=== PATIENT | female | born 1935 | race Caucasian/White ===

== ENCOUNTER 2016-12-23 10:47 | Emergency (ER) | payer OTHER ==
[2016-12-23 10:57] VITALS: BMI 25.0
--- NOTE | 2016-12-23 11:09 | DR.GENAD ---
HPI - HPI Comment HPI Comment: PATIENT WOKE UP TODAY DOING FINE, STARTED FELLING LIGHT HEADED AND FEELING SHE IS GOING TO FAINT. SYMTOMS STILL PRESENT IN EF. HISTORY OF HTN, HYPERLIPIDEMIA AND GERD. SHE TAKES THYRIOD MEDICATION. - Complaint/Symptoms Chief Complaint Doctors Comments: DIZZINESS, LIGHT HEADED. Chief Complaint:: PT STATES " I AM NOT IN ANY PAIN AND I AM LIGHT HEADED"... - Nurses notes reviewed Nurses Notes Review: Yes - Source History Provided: Patient - Mode of Arrival Mode of Arrival: Ambulatory - Timing Onset of Chief Complaint: 12/23/16 Came on: Suddenly - Duration Duration: Constant Duration: Hours - Severity Severity: Moderate PMH - PMH Past Medical History: No Past Surgical History: Yes Surgical History: Hysterectomy Past Surgical History Comment: HERNIA, LUMPECTOMY.. - Family History History of Family Medical Conditions: Yes Family Medical History: Cancer Family Medical History Comment: AL.. - Social History Does patient currently use any type of tobacco product: No Have you used tobacco products in the last 12 months: No Type of Tobacco Use: None Does any household member use tobacco: No Alcohol Use: None Do you use any recreational Drugs:: No Lives With: Family Lives Where: Home - infectious screening In the last 2 months have you had wt loss of >10#?: NO Have you had fever, night sweats or hemotysis?: No Have you traveled outside the country in the last 6 months?: No Isolation: Standard ROS - Review of Systems Constitutional: Weakness, Fatigue Eyes: No Symptoms Reported ENTM: No Symptoms Reported Respiratoy: No Symptoms Reported. negative: Productive Cough, Short of Breath, Wheezing, Hemoptysis Cardiovascular: Palpitations. negative: Chest Pain, Edema Gastrointestinal/Abdominal: Nausea Genitourinary: No Symptoms Reported Neurological: Weakness, Dizziness. negative: Headache Musculoskeletal: No Symptoms Reported Integumentary: No Symptoms Reported Hematologic/Lymphatic: No Symptoms Reported Endocrine: No Symptoms Reported All Other Systems: Reviewed and Negative PE - Vital Signs Vitals: Pulse Rate [Right Brachial] 53 Pulse Rate 130 Respiratory Rate 20 Blood Pressure [Right Arm] 133/64 Blood Pressure 121/92 O2 Sat by Pulse Oximetry 100 - General Limitations: No Limitations General Appearance: Alert - Head Head Exam: Normal Inspection - Eyes Eye exam: Normal Appearance - ENT ENT Exam: Normal External Ear Exam External Ear Exam: Normal External Inspection TM/Canal Exam: Bilateral Normal Nose Exam: Normal Nose Exam Mouth Exam: Normal Inspection Throat Exam: Normal Inspection - Neck Neck Exam: Normal Inspection - Chest Chest Inspection: Symmetric Chest Wall Rise - Respiratory Respiratory Exam: Normal Lung Sounds Bilat Respiratory Exam: Bilateral Clear to Auscultation - Cardiovascular Cardiovascular Exam: Irregular Rhythm, Normal Heart Sounds - Abdominal Exam Abdominal Exam: Normal Bowel Sounds, Soft. negative: Tenderness - Extremities Extremities Exam: Normal Inspection - Back Back Exam: Normal Inspection - Neurologic Neurological Exam: Alert, Oriented X3 - Psychiatric Psychiatric Exam: Normal Affect, Normal Mood - Skin Skin Exam: Normal Color MDM - Additional Information Additional Information Obtained From: Family - Differential Diagnosis Differential Diagnosis: NEW ONSET A FIB, DIZZINESS, CVA, TIA, AL Course - Treatment Treatment: SEE ORDERS. AFTER 10MG IV CARDIOZEM BOLUS, HEART RATE DECREASE TO LOW FORTIES. STILL LOW AND SHE SHE IS DIZZY. PATIENT TAKES ATENOLOL FOR HYLERTENTION. - Consultation Consultation Comments: DISCUSS PATIENT WITH DR. HERNÁNDEZ MACHINE CLEANER DOCTOR HERE AT [facility]. HE WILL ADMIT PATIENT. DISCUS PT WITH MACHINE CLEANER DR. HERNÁNDEZ. HE WILL ADMIT PATIENT. WHEN PATIENT CONDITION GOT WORSE, HER CARDIOLOGY PAGE. MACHINE CLEANER SITE INTERPRETER DR. CORONEL WILL ACCEPT PATIENT FOR TRANSFER. HOSPITALIST DR. NANCE ALSO AWARE OF PATIENTS TRANSFER AND ACCEPTED. - Education/Counseling Education/Counseling: Patient, Family, Education Educated On: Treatment, Diagnosis ROR - Labs Reviewed Laboratory Results Reviewed?: Yes Result Diagrams: 12/23/16 11:50 12/23/16 11:50 Laboratory: WBC 6.2 X10^3/uL (3.6-10.0) 12/23/16 11:50 RBC 4.45 X10^6/uL (3.5-5.4) 12/23/16 11:50 Hgb 12.9 g/dL (12.0-16.0) 12/23/16 11:50 Hct 39.5 % (36.0-47.0) 12/23/16 11:50 MCV 88.7 fL (80.0-100.0) 12/23/16 11:50 MCH 29.0 pg (27.0-34.0) 12/23/16 11:50 MCHC 32.6 g/dL (33.0-35.0) L 12/23/16 11:50 RDW 13.7 % (11.6-16.5) 12/23/16 11:50 Plt Count 193 X10^3/uL (150.0-450.0) 12/23/16 11:50 MPV 8.6 fL (7.4-11.0) 12/23/16 11:50 Neut % 62.4 % (42.0-75.0) 12/23/16 11:50 Lymph % 26.4 % (21.0-51.0) 12/23/16 11:50 [place] % 8.6 % (0.0-13.0) 12/23/16 11:50 Eos % 1.8 % (0.9-2.9) 12/23/16 11:50 Baso % 0.8 % (0.2-1.0) 12/23/16 11:50 Neut # 3.9 x10^3/uL (2.2-4.8) 12/23/16 11:50 Lymph # 1.6 X10^3/uL (1.3-2.9) 12/23/16 11:50 [place] # 0.5 x10^3/uL (0.3-0.8) 12/23/16 11:50 Eos # 0.1 x10^3/uL (0.0-0.2) 12/23/16 11:50 Baso # 0.1 X10^3/uL (0.0-0.1) 12/23/16 11:50 Absolute Nucleated RBC 0.0 /100WBC 12/23/16 11:50 INR Target Range - 12/23/16 11:50 INR 1.00 (0.8-1.3) 12/23/16 11:50 PTT 26.4 SECONDS (22.9-36.5) 12/23/16 11:50 PTT Comment - 12/23/16 11:50 Sodium 144 mmol/L (136-145) 12/23/16 11:50 Corrected Sodium TNP 12/23/16 11:50 Potassium 4.5 mmol/L (3.5-5.1) 12/23/16 11:50 Chloride 106 mmol/L (98-107) 12/23/16 11:50 Carbon Dioxide 26.3 mmol/L (21-32) 12/23/16 11:50 BUN 19 mg/dL (7-18) H 12/23/16 11:50 Creatinine 1.61 mg/dL (0.55-1.02) H 12/23/16 11:50 Est GFR (MDRD) Af Amer 39 (>60) L 12/23/16 11:50 Est GFR (MDRD) Non-Af 32 (>60) L 12/23/16 11:50 Glucose 110 mg/dL (65-99) H 12/23/16 11:50 Calcium 9.0 mg/dL (8.5-10.1) 12/23/16 11:50 Corrected Calcium TNP 12/23/16 11:50 Total Bilirubin 0.40 mg/dL (0.2-1.0) 12/23/16 11:50 AST 23 Units/L (15-37) 12/23/16 11:50 ALT 24 Units/L (12-78) 12/23/16 11:50 Alkaline Phosphatase 83 Units/L (46-116) 12/23/16 11:50 Creatine Kinase 126 Units/L (26-192) 12/23/16 11:50 CK-MB (CK-2) 1.2 ng/mL (0-4.0) 12/23/16 11:50 CK/CKMB % Calc 1.0 % (<4) 12/23/16 11:50 Troponin I 0.03 ng/mL (0-1.5) 12/23/16 11:50 Total Protein 7.0 g/dL (6.4-8.2) 12/23/16 11:50 Albumin 3.6 g/dL (3.4-5.0) 12/23/16 11:50 Globulin 3.4 g/dL (2.5-4.5) 12/23/16 11:50 Albumin/Globulin Ratio 1.1 Ratio (1.1-2.1) 12/23/16 11:50 Specimen Type Clean catch urine 12/23/16 11:52 Urine Color Dark yellow (YELLOW) 12/23/16 11:52 Urine Appearance Clear (CLEAR) 12/23/16 11:52 Urine pH 5.0 (5.0 - 8.0) 12/23/16 11:52 Ur Specific [place] 1.020 (1.000-1.030) 12/23/16 11:52 Urine Protein 2+ (NEGATIVE) 12/23/16 11:52 Urine Glucose (UA) Negative (NEGATIVE) 12/23/16 11:52 Urine Ketones 1+ (NEGATIVE) 12/23/16 11:52 Urine Occult Blood 1+ (NEGATIVE) 12/23/16 11:52 Urine Nitrite Negative (NEGATIVE) 12/23/16 11:52 Urine Bilirubin Negative (NEGATIVE) 12/23/16 11:52 Urine Urobilinogen 1+ (NORMAL) 12/23/16 11:52 Ur Leukocyte Esterase 1+ (NEGATIVE) 12/23/16 11:52 Urine RBC Rare /HPF (NEGATIVE) 12/23/16 11:52 Urine WBC 0-3 /HPF (NEGATIVE) 12/23/16 11:52 Ur Squamous Epith Cells Few /HPF (NEGATIVE) 12/23/16 11:52 Urine Bacteria Trace /HPF (NEGATIVE) 12/23/16 11:52 Hyaline Casts Moderate /LPF (NEGATIVE) 12/23/16 11:52 Urine Mucus Few /HPF (NEGATIVE) 12/23/16 11:52 Ur Culture Indicated? No/not indicated 12/23/16 11:52 - XRAY XRAY Interpreted by: Radiologist XRAY Findings: REPORT DISCUSS WITH PATIENT AND HER FAMILY. - Diagnosis Discharge Problem: New onset a-fib, Atrial fibrillation, rapid, Bradycardia - Discharge Plan Disposition: XFER SHT-REPLACED BY [facility] Condition: Stable - Follow ups/Referrals Follow ups/Referrals: AFSHAN TELLES [Primary Care Provider] - 3 days - Instructions
[2016-12-23 12:08] LABS: BASOPHILS # (AUTO) 0.1 X10^3/uL (0.0-0.1); BASOPHILS % (AUTO) 0.8 % (0.2-1.0); EOSINOPHILS # (AUTO) 0.1 x10^3/uL (0.0-0.2); EOSINOPHILS % (AUTO) 1.8 % (0.9-2.9); HEMATOCRIT 39.5 % (36.0-47.0); HEMOGLOBIN 12.9 g/dL (12.0-16.0); LYMPHOCYTES # (AUTO) 1.6 X10^3/uL (1.3-2.9); LYMPHOCYTES % (AUTO) 26.4 % (21.0-51.0); MEAN CORPUSCULAR HGB CONC 32.6 g/dL (33.0-35.0); MEAN CORPUSCULAR VOLUME 88.7 fL (80.0-100.0); MEAN PLATELET VOLUME 8.6 fL (7.4-11.0); MONOCYTES # (AUTO) 0.5 x10^3/uL (0.3-0.8); MONOCYTES % (AUTO) 8.6 % (0.0-13.0); NEUTROPHILS # (AUTO) 3.9 x10^3/uL (2.2-4.8); NEUTROPHILS % (AUTO) 62.4 % (42.0-75.0); PLATELET COUNT 193 X10^3/uL (150.0-450.0); RED BLOOD COUNT 4.45 X10^6/uL (3.5-5.4); RED CELL DISTRIBUTION WIDTH 13.7 % (11.6-16.5); WHITE BLOOD COUNT 6.2 X10^3/uL (3.6-10.0)
--- NOTE | 2016-12-23 12:18 | CT ---
HEAD CT WITHOUT IV CONTRAST CLINICAL INDICATION: Dizziness TECHNIQUE: Axial CT images from skull base to vertex without IV contrast.Dose reduction techniques i ncluding Automated Exposure Control (AEC) and adjustment of mA and kV were utlized. COMPARISON: None FINDINGS: Diffuse patchy and confluent white matter hypoattenuation with associated volume loss. There is no e vidence of acute infarction, intracranial hemorrhage, mass or mass effect, or abnormal extra-axial c ollection. The density of the larger dural venous sinuses is normal. Age-related, ex-vacuo dilatatio n of the ventricles and sulci. The skull base and calvarium are normal. The included paranasal sinus es and mastoid air cells are predominantly clear. IMPRESSION: 1. No acute intracranial abnormality. If there is definite, focal, acute neurologic deficit, MRI wit h diffusion-weighted imaging would be more sensitive for detection of acute stroke. 2. Chronic microangiopathic changes and ex vacuo dilatation of the ventricles and sulci. Reported By:
[2016-12-23 12:21] LABS: BILIRUBIN,URINE NEGATIVE (NEGATIVE); BLOOD/HEMOGLOBIN,URINE 1+ (NEGATIVE); GLUCOSE, URINE NEGATIVE (NEGATIVE); KETONES,URINE 1+ (NEGATIVE); LEUKOCYTE ESTERASE ,URINE 1+ (NEGATIVE); NITRITES,URINE NEGATIVE (NEGATIVE); PROTEIN,URINE 2+ (NEGATIVE); UROBILINOGEN,URINE 1+ (NORMAL)
[2016-12-23 12:30] LABS: APPEARANCE,URINE CLEAR (CLEAR); BACTERIA,URINE TRACE /HPF (NEGATIVE); COLOR,URINE DARK YELLOW (YELLOW); HYALINE CASTS, URINE MODERATE /LPF (NEGATIVE); MUCUS,URINE FEW /HPF (NEGATIVE); RBC,URINE RARE /HPF (NEGATIVE); SQUAMOUS EPITHELIAL CELL,UR FEW /HPF (NEGATIVE)
[2016-12-23 12:35] LABS: BLOOD UREA NITROGEN 19 mg/dL (7-18); CARBON DIOXIDE 26.3 mmol/L (21-32); CHLORIDE 106 mmol/L (98-107); CREATININE 1.61 mg/dL (0.55-1.02); GLUCOSE 110 mg/dL (65-99); SODIUM 144 mmol/L (136-145); TROPONIN I 0.03 ng/mL (0-1.5); eGFR BLACK RACES 39 (>60); eGFR NON BLACK RACES 32 (>60)
[2016-12-23 12:40] LABS: ALANINE AMINOTRANSFERASE 24 Units/L (12-78); ALBUMIN 3.6 g/dL (3.4-5.0); ALKALINE PHOSPHATASE 83 Units/L (46-116); ASPARTATE AMINO TRANSFERASE 23 Units/L (15-37); CREATINE KINASE 126 Units/L (26-192); CREATINE KINASE MB 1.2 ng/mL (0-4.0)
[2016-12-23] MEDS ORDERED: NS 250 ML IV 250 ML IV ONE (13:13)
[2016-12-23] MEDS ORDERED: CARDIZEM INJ 50 MG VIAL ONE (13:13)
[2016-12-23] MEDS ORDERED: NS 100 ML IV 100 ML IV ONE (13:14)
[2016-12-23] MEDS ORDERED: CARDIZEM INJ 125 MG VIAL ONE (13:14)
[2016-12-23] MEDS: CARDIZEM INJ 50 MG VIAL IVP ONE ×2 (13:30→13:43)
[2016-12-23] MEDS ORDERED: CARDIZEM INJ 125 MG VIAL 125 MG in NS 100 ML IV 100 ML IV PRN (13:30)
--- NOTE | 2016-12-23 13:36 | RAD ---
HISTORY: Dizziness Study: Single view of the chest. Comparison: 01/02/2013 Findings: Mild cardiomegaly. No focal consolidations, pleural effusions or pneumothorax. Osseous structures de monstrate no acute abnormality. IMPRESSION: 1. No acute cardiopulmonary process. Reported By:
[2016-12-23] MEDS ORDERED: LOVENOX INJ 40 MG SYR SC ONE (13:46)
[2016-12-23] MEDS ORDERED: LOVENOX INJ 30 MG SYR SC SCH (14:00)
[2016-12-23] MEDS ORDERED: BENTYL CAP 10 MG PO SCH (14:00)
[2016-12-23] MEDS ORDERED: NS 1000 ML 1,000 ML IV SCH (14:00)
[2016-12-23] MEDS ORDERED: NS 1000 ML 1,000 ML ONE (14:48)
[2016-12-23] MEDS ORDERED: NS IV ONE (15:00)
[2016-12-23 16:34] VITALS: BP 133/64
[2016-12-23] MEDS ORDERED: INDOCIN CAP 25 MG PO SCH (21:00)
[2016-12-23] MEDS ORDERED: ZOCOR TAB 40 MG PO SCH (21:00)
[2016-12-24] MEDS ORDERED: ASPIRIN EC 81 MG PO SCH (09:00)
[2016-12-24] MEDS ORDERED: PROTONIX TAB 40 MG PO SCH (09:00)
[2016-12-24] MEDS ORDERED: [UNRECOGNIZED DRUG - OTHER] PO SCH (09:00)
[2016-12-24] MEDS ORDERED: SYNTHROID 100 mcg TAB PO SCH (09:00)
[2016-12-24] MEDS ORDERED: PEPCID TAB 20 MG PO SCH (09:00)
== END 2016-12-23 16:14 | disposition short-term general hospital (02) ==
LOC: ER 10:47
DX: I48.91 Unspecified atrial fibrillation (principal); R00.1 Bradycardia, unspecified
CPT/HCPCS: 36415; 70450; 71010; 80053; 81001; 82550; 82553; 84484; 85025; 85610; 85730; 93005; 93041; 96365; 96367; 96372; 96374; 96375; 99285; A4222; J1650; J3490

== ENCOUNTER → 2017-03-01 | Outpatient (CLI) | payer OTHER ==
--- NOTE | 2017-03-02 09:47 | MG ---
HISTORY: SCREENING Comparison: February 17, 2015 and February 23, 2016 FINDINGS: Bilateral CC and MLO projections of the right and left breast were obtained. Scattered fibroglandul ar tissue is seen to be present without significant interval change. No suspicious architectural di stortion, mass or clustered microcalcifications can be observed to suggest malignancy. No skin thic kening or nipple retraction is appreciated. No pathological lymphadenopathy can be identified. [place]arte ign-appearing calcifications are noted within the right and left breast. IMPRESSION: NO RADIOGRAPHIC EVIDENCE OF MALIGNANCY. ACR CATEGORY 2 - benign findings. FOLLOW-UP EXAM 1 YEAR. Diagnostic CAD was utilized and reviewed. * 0 (ZERO) - ASSESSMENT INCOMPLETE; ADDITIONAL IMAGING IS NEEDED. * 1/1 (ONE) - NEGATIVE. * 2/II (TWO) - BENIGN FINDINGS. * 3/III (THREE) - PROBABLY BENIGN FINDING; SHORT INTERVAL FOLLOW-UP SUGGESTED. * 4/IV (FOUR) - SUSPICIOUS ABNORMALITY; BIOPSY SHOULD BE CONSIDERED. * 5/V (FIVE) - HIGHLY SUSPICIOUS OF MALIGNANCY; BIOPSY SHOULD BE PERFORMED. A NEGATIVE X-RAY REPORT SHOULD NOT DELAY BIOPSY IF A DOMINANT OR CLINICALLY SUSPICIOUS MASS IS PRESENT; 4 TO 8 PERCENT OF CANCERS ARE NOT IDENTIFIED BY X-RAY. A NEG ATIVE REPORT MAY REINFORCE THE CLINICAL IMPRESSION. ADENOSIS AND DENSE BREASTS MAY OBSCURE AN UNDER LYING NEOPLASM. Reported By:
== END ==
LOC: RAD 14:27
PROVIDERS: ATTEND Nurse Practitioner Family
DX: Z12.31 Encounter for screening mammogram for malignant neoplasm of breast (principal)
CPT/HCPCS: 77067

== ENCOUNTER 2018-08-29 11:10 | Inpatient (IN) ==
[2018-08-29] MEDS: CORDARONE TAB 200 MG PO SCH ×2 (13:57→22:21)
[2018-08-29] MEDS: BENTYL CAP 10 MG PO SCH ×2 (13:58→21:01)
[2018-08-29] MEDS: ROXICODONE TAB 5 MG PO PRN ×2 (14:46→20:49)
[2018-08-29] MEDS: SYNTHROID 75 mcg TAB PO SCH (17:20)
[2018-08-29] MEDS: NEURONTIN CAP 100 MG PO SCH (20:49)
[2018-08-29] MEDS: COLACE CAP 100 MG PO SCH (20:49)
[2018-08-29] MEDS: LOPRESSOR TAB 25 MG PO SCH (20:49)
[2018-08-30 05:25] LABS: BASOPHILS % (AUTO) 0.3 % (0.2-1.0); EOSINOPHILS % (AUTO) 0.7 % (0.9-2.9); HEMATOCRIT 22.7 % (36.0-47.0); HEMOGLOBIN 7.8 g/dL (12.0-16.0); LYMPHOCYTES # (AUTO) 0.6 X10^3/uL (1.3-2.9); LYMPHOCYTES % (AUTO) 12.6 % (21.0-51.0); MEAN CORPUSCULAR HEMOGLOBIN 31.2 pg (27.0-34.0); MEAN CORPUSCULAR HGB CONC 34.2 g/dL (33.0-35.0); MEAN CORPUSCULAR VOLUME 91.3 fL (80.0-100.0); MEAN PLATELET VOLUME 8.5 fL (7.4-11.0); MONOCYTES # (AUTO) 0.6 x10^3/uL (0.3-0.8); MONOCYTES % (AUTO) 11.7 % (0.0-13.0); NEUTROPHILS # (AUTO) 3.7 x10^3/uL (2.2-4.8); NEUTROPHILS % (AUTO) 74.7 % (42.0-75.0); PLATELET COUNT 263 X10^3/uL (150.0-450.0); RED BLOOD COUNT 2.49 X10^6/uL (3.5-5.4); RED CELL DISTRIBUTION WIDTH 13.9 % (11.6-16.5)
[2018-08-30 05:39] LABS: ALANINE AMINOTRANSFERASE 27 Units/L (12-78); ALBUMIN 1.7 g/dL (3.4-5.0); ALKALINE PHOSPHATASE 84 Units/L (46-116); ASPARTATE AMINO TRANSFERASE 29 Units/L (15-37); BLOOD UREA NITROGEN 9 mg/dL (7-18); CALCIUM 7.6 mg/dL (8.5-10.1); CARBON DIOXIDE 28.4 mmol/L (21-32); CHLORIDE 102 mmol/L (98-107); COR CA(FOR HYPOALB) 9.4 mg/dL (8.5-10.1); CREATININE 1.04 mg/dL (0.55-1.02); SODIUM 137 mmol/L (136-145); TOTAL PROTEIN 4.8 g/dL (6.4-8.2); eGFR NON BLACK RACES 54 (>60)
[2018-08-30] MEDS: BENTYL CAP 10 MG PO SCH ×3 (05:50→21:20)
[2018-08-30] MEDS: CORDARONE TAB 200 MG PO SCH ×3 (05:50→21:20)
[2018-08-30 06:38] LABS: HYPOCHROMASIA SLIGHT; PLATELET MORPHOLOGY COMMENT NORMAL (NORMAL)
[2018-08-30] MEDS: COLACE CAP 100 MG PO SCH ×2 (09:18→21:20)
[2018-08-30] MEDS: COZAAR PO SCH (09:18)
[2018-08-30] MEDS: NEURONTIN CAP 100 MG PO SCH ×2 (09:19→21:20)
[2018-08-30] MEDS: LOPRESSOR TAB 25 MG PO SCH ×2 (09:19→21:20)
[2018-08-30] MEDS: LIPITOR TAB 40 MG PO SCH (09:19)
[2018-08-30] MEDS: PEPCID TAB 20 MG PO SCH (09:20)
[2018-08-30] MEDS: PROTONIX TAB 40 MG PO SCH (09:20)
[2018-08-30] MEDS: NORVASC TAB 5 MG PO SCH (09:20)
[2018-08-30] MEDS: XARELTO PO SCH (09:20)
[2018-08-30 11:12] LABS: HEMATOCRIT 25.5 % (36.0-47.0); HEMOGLOBIN 8.8 g/dL (12.0-16.0)
[2018-08-30] MEDS: SYNTHROID 75 mcg TAB PO SCH (16:27)
[2018-08-31] MEDS: BENTYL CAP 10 MG PO SCH ×3 (05:16→21:17)
[2018-08-31] MEDS: CORDARONE TAB 200 MG PO SCH ×3 (05:16→21:17)
[2018-08-31] MEDS: COLACE CAP 100 MG PO SCH ×2 (08:47→20:31)
[2018-08-31] MEDS: LIPITOR TAB 40 MG PO SCH (08:47)
[2018-08-31] MEDS: COZAAR PO SCH (08:47)
[2018-08-31] MEDS: NEURONTIN CAP 100 MG PO SCH ×2 (08:48→20:31)
[2018-08-31] MEDS: NORVASC TAB 5 MG PO SCH (08:48)
[2018-08-31] MEDS: LOPRESSOR TAB 25 MG PO SCH ×2 (08:48→20:31)
[2018-08-31] MEDS: PEPCID TAB 20 MG PO SCH (08:48)
[2018-08-31] MEDS: PROTONIX TAB 40 MG PO SCH (08:53)
[2018-08-31] MEDS: XARELTO PO SCH (08:54)
[2018-08-31] MEDS: SYNTHROID 75 mcg TAB PO SCH (17:09)
[2018-08-31] MEDS: ROXICODONE TAB 5 MG PO PRN (17:32)
[2018-09-01] MEDS: BENTYL CAP 10 MG PO SCH ×3 (05:20→21:03)
[2018-09-01] MEDS: CORDARONE TAB 200 MG PO SCH ×3 (05:20→21:08)
[2018-09-01] MEDS: LOPRESSOR TAB 25 MG PO SCH ×2 (08:35→20:33)
[2018-09-01] MEDS: NORVASC TAB 5 MG PO SCH (08:35)
[2018-09-01] MEDS: PROTONIX TAB 40 MG PO SCH (08:35)
[2018-09-01] MEDS: LIPITOR TAB 40 MG PO SCH (08:35)
[2018-09-01] MEDS: COLACE CAP 100 MG PO SCH ×2 (08:36→20:34)
[2018-09-01] MEDS: COZAAR PO SCH (08:36)
[2018-09-01] MEDS: PEPCID TAB 20 MG PO SCH (08:36)
[2018-09-01] MEDS: XARELTO PO SCH (08:36)
[2018-09-01] MEDS: NEURONTIN CAP 100 MG PO SCH ×2 (08:36→20:33)
[2018-09-01] MEDS: ROXICODONE TAB 5 MG PO PRN ×2 (10:01→22:12)
[2018-09-01] MEDS: SYNTHROID 75 mcg TAB PO SCH (17:00)
[2018-09-01] MEDS: BACTRIM DS TAB PO SCH ×2 (17:33→20:34)
[2018-09-02] MEDS: BENTYL CAP 10 MG PO SCH ×3 (05:11→22:01)
[2018-09-02] MEDS: CORDARONE TAB 200 MG PO SCH ×3 (05:11→22:01)
[2018-09-02] MEDS: XARELTO PO SCH (08:43)
[2018-09-02] MEDS: COZAAR PO SCH (08:44)
[2018-09-02] MEDS: NEURONTIN CAP 100 MG PO SCH ×2 (08:44→20:50)
[2018-09-02] MEDS: PROTONIX TAB 40 MG PO SCH (08:44)
[2018-09-02] MEDS: BACTRIM DS TAB PO SCH ×2 (08:44→20:49)
[2018-09-02] MEDS: LOPRESSOR TAB 25 MG PO SCH ×2 (08:44→20:50)
[2018-09-02] MEDS: NORVASC TAB 5 MG PO SCH ×2 (08:44→08:46)
[2018-09-02] MEDS: PEPCID TAB 20 MG PO SCH (08:45)
[2018-09-02] MEDS: COLACE CAP 100 MG PO SCH ×2 (08:45→20:49)
[2018-09-02] MEDS: ROXICODONE TAB 5 MG PO PRN ×2 (08:47→20:54)
[2018-09-02] MEDS: LIPITOR TAB 40 MG PO SCH (08:47)
--- NOTE | 2018-09-02 12:59 | PCM.PROG ---
Progress Note - Progress Note for Day of Date of Exam: 09/02/18 - Subjective Subjective: 83 WF SWING BED STATUS FOLLOWING LEFT HIP FRACTURE REPAIR. PT IS CURRENTLY RECIEVING PHSYICAL THERAPY. PT HAD HAD MINIMAL DRAINAGE TO LEFT HIP DRESSING, STARTED ON PO BACTRIM PER DR MCCONNELL. CONTINUE MILD SOILED DRESSING THIS AM, PT DENIES PAIN OR INCREASED REDNESS TO SURGICAL SITE, WOUND CULTURE ORDERED. CONTINUE PO BACTRIM AND MONITOR - Past Medical Family Social History Past Med/Fam/Surg Hx: No changes since H&P Allergies: Allergies codeine Allergy (Verified 04/04/18 06:20) meperidine [From Demerol] Allergy (Verified 04/04/18 06:20) - Review of Systems ROS: No change since H&P - Vital Signs and I&O's Vital Signs: Temperature 98 F Pulse Rate [Left Brachial] 85 Respiratory Rate 20 Blood Pressure [Left Arm] 168/71 Blood Pressure [Right Arm] 130/64 Blood Pressure 138/64 O2 Sat by Pulse Oximetry 97 Intake and Output: Intake & Output 08/31/18 09/01/18 09/02/18 09/03/18 11:59 11:59 11:59 11:59 Intake Total 960 / 960 1400 / 1400 1100 / 1100 Balance 960 / 960 1400 / 1400 1100 / 1100 - Physical Exam Oriented: Person Eyes: Normal Nose: Normal Throat: Normal Respiratory: Normal Cardiovascular: Normal : Normal Auscultation: Bowel Sounds: Normal Palpation: Normal Tenderness: Normal Skin: Wound Musculoskeletal: Left, Hip Mood Description: Calm Speech Pattern: Clear, Appropriate - Laboratory and Diagnostics Result Diagrams: 08/30/18 10:57 08/30/18 04:20 Labs: Laboratory WBC 5.0 X10^3/uL (3.6-10.0) 08/30/18 04:20 RBC 2.49 X10^6/uL (3.5-5.4) L 08/30/18 04:20 Hgb 8.8 g/dL (12.0-16.0) L 08/30/18 10:57 Hct 25.5 % (36.0-47.0) L 08/30/18 10:57 MCV 91.3 fL (80.0-100.0) 08/30/18 04:20 MCH 31.2 pg (27.0-34.0) 08/30/18 04:20 MCHC 34.2 g/dL (33.0-35.0) 08/30/18 04:20 RDW 13.9 % (11.6-16.5) 08/30/18 04:20 Plt Count 263 X10^3/uL (150.0-450.0) 08/30/18 04:20 Plt Count Comment Adequate (ADEQUATE) 08/30/18 04:20 MPV 8.5 fL (7.4-11.0) 08/30/18 04:20 Neut % (Auto) 74.7 % (42.0-75.0) 08/30/18 04:20 Lymph % (Auto) 12.6 % (21.0-51.0) L 08/30/18 04:20 [place] % (Auto) 11.7 % (0.0-13.0) 08/30/18 04:20 Eos % (Auto) 0.7 % (0.9-2.9) L 08/30/18 04:20 Baso % (Auto) 0.3 % (0.2-1.0) 08/30/18 04:20 Neut # (Auto) 3.7 x10^3/uL (2.2-4.8) 08/30/18 04:20 Lymph # (Auto) 0.6 X10^3/uL (1.3-2.9) L 08/30/18 04:20 [place] # (Auto) 0.6 x10^3/uL (0.3-0.8) 08/30/18 04:20 Eos # (Auto) 0.0 x10^3/uL (0.0-0.2) 08/30/18 04:20 Baso # (Auto) 0.0 X10^3/uL (0.0-0.1) 08/30/18 04:20 Absolute Nucleated RBC 0.0 /100WBC 08/30/18 04:20 Plt Morphology Comment Normal (NORMAL) 08/30/18 04:20 RBC Morphology Abnormal (NORMAL) A 08/30/18 04:20 Hypochromasia Slight A 08/30/18 04:20 Sodium 137 mmol/L (136-145) 08/30/18 04:20 Corrected Sodium TNP 08/30/18 04:20 Potassium 4.3 mmol/L (3.5-5.1) 08/30/18 04:20 Chloride 102 mmol/L (98-107) 08/30/18 04:20 Carbon Dioxide 28.4 mmol/L (21-32) 08/30/18 04:20 BUN 9 mg/dL (7-18) 08/30/18 04:20 Creatinine 1.04 mg/dL (0.55-1.02) H 08/30/18 04:20 Est GFR (MDRD) Af Amer > 60 (>60) 08/30/18 04:20 Est GFR (MDRD) Non-Af 54 (>60) L 08/30/18 04:20 Glucose 108 mg/dL (65-99) H 08/30/18 04:20 Calcium 7.6 mg/dL (8.5-10.1) L 08/30/18 04:20 Corrected Calcium 9.4 mg/dL (8.5-10.1) 08/30/18 04:20 Total Bilirubin 0.90 mg/dL (0.2-1.0) 08/30/18 04:20 AST 29 Units/L (15-37) 08/30/18 04:20 ALT 27 Units/L (12-78) 08/30/18 04:20 Alkaline Phosphatase 84 Units/L (46-116) 08/30/18 04:20 Total Protein 4.8 g/dL (6.4-8.2) L 08/30/18 04:20 Albumin 1.7 g/dL (3.4-5.0) L 08/30/18 04:20 Globulin 3.1 g/dL (2.5-4.5) 08/30/18 04:20 Albumin/Globulin Ratio 0.5 Ratio (1.1-2.1) L 08/30/18 04:20 - Plan (1) Status post-operative repair of type I or II open fracture of left hip Status: Acute Plan: WOUND CARE, PT. ROUTINE LABS (2) Atrial fibrillation with controlled ventricular response Status: Acute
[2018-09-02 14:59] LABS: BASOPHILS % (AUTO) 0.5 % (0.2-1.0); EOSINOPHILS # (AUTO) 0.1 x10^3/uL (0.0-0.2); EOSINOPHILS % (AUTO) 0.6 % (0.9-2.9); HEMATOCRIT 25.5 % (36.0-47.0); HEMOGLOBIN 8.8 g/dL (12.0-16.0); LYMPHOCYTES # (AUTO) 0.7 X10^3/uL (1.3-2.9); LYMPHOCYTES % (AUTO) 8.6 % (21.0-51.0); MEAN CORPUSCULAR HEMOGLOBIN 31.5 pg (27.0-34.0); MEAN CORPUSCULAR HGB CONC 34.6 g/dL (33.0-35.0); MEAN PLATELET VOLUME 7.5 fL (7.4-11.0); MONOCYTES # (AUTO) 0.5 x10^3/uL (0.3-0.8); MONOCYTES % (AUTO) 6.8 % (0.0-13.0); NEUTROPHILS # (AUTO) 6.6 x10^3/uL (2.2-4.8); NEUTROPHILS % (AUTO) 83.5 % (42.0-75.0); PLATELET COUNT 459 X10^3/uL (150.0-450.0); RED BLOOD COUNT 2.81 X10^6/uL (3.5-5.4); RED CELL DISTRIBUTION WIDTH 14.3 % (11.6-16.5)
[2018-09-02 15:19] LABS: ALANINE AMINOTRANSFERASE 24 Units/L (12-78); ALBUMIN 2.1 g/dL (3.4-5.0); ALKALINE PHOSPHATASE 104 Units/L (46-116); ASPARTATE AMINO TRANSFERASE 29 Units/L (15-37); BLOOD UREA NITROGEN 8 mg/dL (7-18); CALCIUM 7.6 mg/dL (8.5-10.1); CARBON DIOXIDE 26.7 mmol/L (21-32); CHLORIDE 100 mmol/L (98-107); COR CA(FOR HYPOALB) 9.1 mg/dL (8.5-10.1); CREATININE 1.03 mg/dL (0.55-1.02); SODIUM 136 mmol/L (136-145); TOTAL PROTEIN 5.3 g/dL (6.4-8.2); eGFR NON BLACK RACES 54 (>60)
[2018-09-02] MEDS: SYNTHROID 75 mcg TAB PO SCH (16:49)
[2018-09-03] MEDS: BENTYL CAP 10 MG PO SCH ×4 (05:11→21:34)
[2018-09-03] MEDS: CORDARONE TAB 200 MG PO SCH ×4 (05:11→21:34)
[2018-09-03] MEDS: COLACE CAP 100 MG PO SCH ×2 (08:44→20:22)
[2018-09-03] MEDS: LOPRESSOR TAB 25 MG PO SCH ×2 (08:44→20:22)
[2018-09-03] MEDS: PEPCID TAB 20 MG PO SCH (08:44)
[2018-09-03] MEDS: PROTONIX TAB 40 MG PO SCH (08:44)
[2018-09-03] MEDS: LIPITOR TAB 40 MG PO SCH (08:44)
[2018-09-03] MEDS: XARELTO PO SCH (08:44)
[2018-09-03] MEDS: COZAAR PO SCH (08:45)
[2018-09-03] MEDS: NEURONTIN CAP 100 MG PO SCH ×2 (08:45→20:22)
[2018-09-03] MEDS: BACTRIM DS TAB PO SCH ×2 (08:45→20:22)
[2018-09-03] MEDS: NORVASC TAB 5 MG PO SCH (09:17)
[2018-09-03] MEDS ORDERED: ZOFRAN TAB 4 MG PO PRN (09:29)
[2018-09-03] MEDS: SYNTHROID 75 mcg TAB PO SCH (15:51)
[2018-09-04] MEDS: CORDARONE TAB 200 MG PO SCH ×3 (05:12→21:23)
[2018-09-04] MEDS: BENTYL CAP 10 MG PO SCH ×3 (05:12→21:23)
[2018-09-04] MEDS: BACTRIM DS TAB PO SCH (09:58)
[2018-09-04] MEDS: PEPCID TAB 20 MG PO SCH (09:59)
[2018-09-04] MEDS: LIPITOR TAB 40 MG PO SCH (09:59)
[2018-09-04] MEDS: NEURONTIN CAP 100 MG PO SCH ×2 (09:59→20:03)
[2018-09-04] MEDS: COLACE CAP 100 MG PO SCH ×2 (09:59→20:02)
[2018-09-04] MEDS: NORVASC TAB 5 MG PO SCH (09:59)
[2018-09-04] MEDS: LOPRESSOR TAB 25 MG PO SCH ×2 (09:59→20:03)
[2018-09-04] MEDS: COZAAR PO SCH (09:59)
[2018-09-04] MEDS: PROTONIX TAB 40 MG PO SCH (10:00)
[2018-09-04] MEDS: XARELTO PO SCH (10:00)
[2018-09-04] MEDS: ROXICODONE TAB 5 MG PO PRN (10:00)
[2018-09-04] MEDS ORDERED: CONSULT PHARMACY - ANTIBIOTIC XX SCH (11:00)
--- NOTE | 2018-09-04 13:08 | PCM.PROG ---
Progress Note - Progress Note for Day of Date of Exam: 09/04/18 - Subjective Subjective: 83 WF SWING BED STATUS FOLLOWING LEFT HIP FRACTURE REPAIR. PT IS CURRENTLY RECIEVING PHSYICAL THERAPY. PT HAD HAD MINIMAL DRAINAGE TO LEFT HIP DRESSING, STARTED ON PO BACTRIM PER DR MCCONNELL. WOUND CULTURE +ENTEROCOCCUS CONTINUE MILD SOILED DRESSING THIS AM, PT DENIES PAIN OR INCREASED REDNESS TO SURGICAL SITE, WOUND CULTURE ORDERED. CONTINUE PO BACTRIM AND MONITOR - Past Medical Family Social History Past Med/Fam/Surg Hx: No changes since H&P Allergies: Allergies codeine Allergy (Verified 04/04/18 06:20) meperidine [From Demerol] Allergy (Verified 04/04/18 06:20) - Review of Systems ROS: No change since H&P - Vital Signs and I&O's Vital Signs: Temperature 97.8 F Pulse Rate [Left Brachial] 80 Respiratory Rate 20 Blood Pressure [Left Arm] 115/54 Blood Pressure [Right Arm] 117/59 Blood Pressure 138/64 O2 Sat by Pulse Oximetry 98 Intake and Output: Intake & Output 09/02/18 09/03/18 09/04/18 09/05/18 11:59 11:59 11:59 11:59 Intake Total 1100 / 1100 1620 / 1620 800 / 800 Balance 1100 / 1100 1620 / 1620 800 / 800 - Physical Exam Oriented: Person Eyes: Normal Ear: Normal Nose: Normal Throat: Normal Respiratory: Normal Cardiovascular: Normal : Normal Auscultation: Bowel Sounds: Normal Tenderness: Normal Skin: Wound Musculoskeletal: Left, Hip Mood Description: Calm Speech Pattern: Clear, Appropriate - Laboratory and Diagnostics Result Diagrams: 09/02/18 14:44 09/02/18 14:44 Labs: 09/02/18 15:05 Hip - Left Gram Stain - Final 09/02/18 15:05 Hip - Left Wound Culture - Final Enterococcus Faecalis Laboratory WBC 8.0 X10^3/uL (3.6-10.0) 09/02/18 14:44 RBC 2.81 X10^6/uL (3.5-5.4) L 09/02/18 14:44 Hgb 8.8 g/dL (12.0-16.0) L 09/02/18 14:44 Hct 25.5 % (36.0-47.0) L 09/02/18 14:44 MCV 91.0 fL (80.0-100.0) 09/02/18 14:44 MCH 31.5 pg (27.0-34.0) 09/02/18 14:44 MCHC 34.6 g/dL (33.0-35.0) 09/02/18 14:44 RDW 14.3 % (11.6-16.5) 09/02/18 14:44 Plt Count 459 X10^3/uL (150.0-450.0) H 09/02/18 14:44 Plt Count Comment Adequate (ADEQUATE) 08/30/18 04:20 MPV 7.5 fL (7.4-11.0) 09/02/18 14:44 Neut % (Auto) 83.5 % (42.0-75.0) H 09/02/18 14:44 Lymph % (Auto) 8.6 % (21.0-51.0) L 09/02/18 14:44 [place] % (Auto) 6.8 % (0.0-13.0) 09/02/18 14:44 Eos % (Auto) 0.6 % (0.9-2.9) L 09/02/18 14:44 Baso % (Auto) 0.5 % (0.2-1.0) 09/02/18 14:44 Neut # (Auto) 6.6 x10^3/uL (2.2-4.8) H 09/02/18 14:44 Lymph # (Auto) 0.7 X10^3/uL (1.3-2.9) L 09/02/18 14:44 [place] # (Auto) 0.5 x10^3/uL (0.3-0.8) 09/02/18 14:44 Eos # (Auto) 0.1 x10^3/uL (0.0-0.2) 09/02/18 14:44 Baso # (Auto) 0.0 X10^3/uL (0.0-0.1) 09/02/18 14:44 Absolute Nucleated RBC 0.0 /100WBC 09/02/18 14:44 Plt Morphology Comment Normal (NORMAL) 08/30/18 04:20 RBC Morphology Abnormal (NORMAL) A 08/30/18 04:20 Hypochromasia Slight A 08/30/18 04:20 Sodium 136 mmol/L (136-145) 09/02/18 14:44 Corrected Sodium TNP 09/02/18 14:44 Potassium 3.8 mmol/L (3.5-5.1) 09/02/18 14:44 Chloride 100 mmol/L (98-107) 09/02/18 14:44 Carbon Dioxide 26.7 mmol/L (21-32) 09/02/18 14:44 BUN 8 mg/dL (7-18) 09/02/18 14:44 Creatinine 1.03 mg/dL (0.55-1.02) H 09/02/18 14:44 Est GFR (MDRD) Af Amer > 60 (>60) 09/02/18 14:44 Est GFR (MDRD) Non-Af 54 (>60) L 09/02/18 14:44 Glucose 107 mg/dL (65-99) H 09/02/18 14:44 Calcium 7.6 mg/dL (8.5-10.1) L 09/02/18 14:44 Corrected Calcium 9.1 mg/dL (8.5-10.1) 09/02/18 14:44 Total Bilirubin 0.90 mg/dL (0.2-1.0) 09/02/18 14:44 AST 29 Units/L (15-37) 09/02/18 14:44 ALT 24 Units/L (12-78) 09/02/18 14:44 Alkaline Phosphatase 104 Units/L (46-116) 09/02/18 14:44 Total Protein 5.3 g/dL (6.4-8.2) L 09/02/18 14:44 Albumin 2.1 g/dL (3.4-5.0) L 09/02/18 14:44 Globulin 3.2 g/dL (2.5-4.5) 09/02/18 14:44 Albumin/Globulin Ratio 0.7 Ratio (1.1-2.1) L 09/02/18 14:44 - Plan (1) Status post-operative repair of type I or II open fracture of left hip Status: Acute Plan: WOUND CARE, PT. D/C BACTRIM, CONSULT PHARMACY FOR IV ATBIOTIC. ROUTINE LABS (2) Atrial fibrillation with controlled ventricular response Status: Acute
[2018-09-04] MEDS: SYNTHROID 75 mcg TAB PO SCH (15:41)
[2018-09-04] MEDS: ZYVOX TAB 600 MG PO SCH (20:03)
[2018-09-05] MEDS: BENTYL CAP 10 MG PO SCH ×3 (05:37→21:00)
[2018-09-05] MEDS: PEPCID TAB 20 MG PO SCH (09:11)
[2018-09-05] MEDS: XARELTO PO SCH (09:11)
[2018-09-05] MEDS: LIPITOR TAB 40 MG PO SCH (09:11)
[2018-09-05] MEDS: COZAAR PO SCH (09:12)
[2018-09-05] MEDS: PROTONIX TAB 40 MG PO SCH (09:12)
[2018-09-05] MEDS: NEURONTIN CAP 100 MG PO SCH ×2 (09:12→20:57)
[2018-09-05] MEDS: ZYVOX TAB 600 MG PO SCH ×2 (09:12→20:56)
[2018-09-05] MEDS: NORVASC TAB 5 MG PO SCH (09:13)
[2018-09-05] MEDS: COLACE CAP 100 MG PO SCH ×2 (09:13→20:56)
[2018-09-05] MEDS: LOPRESSOR TAB 25 MG PO SCH ×2 (09:13→21:08)
[2018-09-05] MEDS: CORDARONE TAB 200 MG PO SCH ×2 (09:13→21:08)
[2018-09-05] MEDS ORDERED: ZYVOX TAB 600 MG ONE (09:53)
[2018-09-05 15:11] LABS: BASOPHILS % (AUTO) 0.6 % (0.2-1.0); EOSINOPHILS % (AUTO) 0.4 % (0.9-2.9); HEMATOCRIT 25.5 % (36.0-47.0); HEMOGLOBIN 8.7 g/dL (12.0-16.0); LYMPHOCYTES # (AUTO) 0.6 X10^3/uL (1.3-2.9); MEAN CORPUSCULAR HEMOGLOBIN 31.5 pg (27.0-34.0); MEAN CORPUSCULAR HGB CONC 34.2 g/dL (33.0-35.0); MEAN CORPUSCULAR VOLUME 92.1 fL (80.0-100.0); MEAN PLATELET VOLUME 7.7 fL (7.4-11.0); MONOCYTES # (AUTO) 0.7 x10^3/uL (0.3-0.8); MONOCYTES % (AUTO) 9.1 % (0.0-13.0); NEUTROPHILS # (AUTO) 6.2 x10^3/uL (2.2-4.8); NEUTROPHILS % (AUTO) 81.9 % (42.0-75.0); PLATELET COUNT 532 X10^3/uL (150.0-450.0); RED BLOOD COUNT 2.77 X10^6/uL (3.5-5.4); RED CELL DISTRIBUTION WIDTH 14.1 % (11.6-16.5); WHITE BLOOD COUNT 7.5 X10^3/uL (3.6-10.0)
[2018-09-05 15:23] LABS: ALBUMIN 2.2 g/dL (3.4-5.0); CALCIUM 7.9 mg/dL (8.5-10.1); CARBON DIOXIDE 25.6 mmol/L (21-32); COR CA(FOR HYPOALB) 9.3 mg/dL (8.5-10.1); CREATININE 1.31 mg/dL (0.55-1.02); TOTAL PROTEIN 5.2 g/dL (6.4-8.2)
[2018-09-05] MEDS: SYNTHROID 75 mcg TAB PO SCH (17:00)
[2018-09-05] MEDS: ROXICODONE TAB 5 MG PO PRN (18:54)
[2018-09-06] MEDS: BENTYL CAP 10 MG PO SCH ×3 (05:56→21:26)
[2018-09-06] MEDS: CORDARONE TAB 200 MG PO SCH ×2 (09:04→21:28)
[2018-09-06] MEDS: COLACE CAP 100 MG PO SCH ×2 (09:04→21:26)
[2018-09-06] MEDS: NORVASC TAB 5 MG PO SCH (09:05)
[2018-09-06] MEDS: NEURONTIN CAP 100 MG PO SCH ×2 (09:05→21:26)
[2018-09-06] MEDS: PEPCID TAB 20 MG PO SCH (09:05)
[2018-09-06] MEDS: LIPITOR TAB 40 MG PO SCH (09:05)
[2018-09-06] MEDS: COZAAR PO SCH (09:05)
[2018-09-06] MEDS: ZYVOX TAB 600 MG PO SCH ×2 (09:05→21:26)
[2018-09-06] MEDS: LOPRESSOR TAB 25 MG PO SCH ×2 (09:05→21:26)
[2018-09-06] MEDS: XARELTO PO SCH (09:06)
[2018-09-06] MEDS: PROTONIX TAB 40 MG PO SCH (09:06)
[2018-09-06] MEDS: TAB-A-VITE PO SCH (10:58)
--- NOTE | 2018-09-06 14:29 | PCM.PROG ---
Progress Note - Progress Note for Day of Date of Exam: 09/06/18 - Subjective Subjective: 83 WF SWING BED STATUS FOLLOWING LEFT HIP FRACTURE REPAIR. PT IS CURRENTLY RECIEVING PHSYICAL THERAPY. PT HAD HAD MINIMAL DRAINAGE TO LEFT HIP DRESSING. WOUND CULTURE +ENTEROCOCCUS. ON PO ZYVOX, CULTURE REPORT FAXED TO DIAZ RODRIGUEZ. PT SEEN HIM FOR FOLLOW UP ON SUNDAY IN HIS OFFICE IN [place]. CONTINUE MILD SOILED DRESSING THIS AM, PT DENIES PAIN OR INCREASED REDNESS TO SURGICAL SITE. NO FEVER - Past Medical Family Social History Past Med/Fam/Surg Hx: No changes since H&P Allergies: Allergies codeine Allergy (Verified 04/04/18 06:20) meperidine [From Demerol] Allergy (Verified 04/04/18 06:20) - Review of Systems ROS: No change since H&P - Vital Signs and I&O's Vital Signs: Temperature 96.9 F Pulse Rate [Left Brachial] 69 Respiratory Rate 18 Blood Pressure [Left Arm] 139/64 Blood Pressure [Right Arm] 117/59 Blood Pressure 138/64 O2 Sat by Pulse Oximetry 97 Intake and Output: Intake & Output 09/04/18 09/05/18 09/06/18 09/07/18 11:59 11:59 11:59 11:59 Intake Total 800 / 800 970 / 970 960 / 960 Balance 800 / 800 970 / 970 960 / 960 - Physical Exam Oriented: Person Eyes: Normal Ear: Normal Nose: Normal Throat: Normal Respiratory: Normal Cardiovascular: Normal : Normal Auscultation: Bowel Sounds: Normal Tenderness: Normal Skin: Wound Musculoskeletal: Left, Hip Mood Description: Calm Speech Pattern: Clear, Appropriate - Laboratory and Diagnostics Result Diagrams: 09/05/18 14:50 09/05/18 14:50 Labs: 09/02/18 15:05 Hip - Left Gram Stain - Final 09/02/18 15:05 Hip - Left Wound Culture - Final Enterococcus Faecalis Laboratory WBC 7.5 X10^3/uL (3.6-10.0) 09/05/18 14:50 RBC 2.77 X10^6/uL (3.5-5.4) L 09/05/18 14:50 Hgb 8.7 g/dL (12.0-16.0) L 09/05/18 14:50 Hct 25.5 % (36.0-47.0) L 09/05/18 14:50 MCV 92.1 fL (80.0-100.0) 09/05/18 14:50 MCH 31.5 pg (27.0-34.0) 09/05/18 14:50 MCHC 34.2 g/dL (33.0-35.0) 09/05/18 14:50 RDW 14.1 % (11.6-16.5) 09/05/18 14:50 Plt Count 532 X10^3/uL (150.0-450.0) H 09/05/18 14:50 Plt Count Comment Adequate (ADEQUATE) 08/30/18 04:20 MPV 7.7 fL (7.4-11.0) 09/05/18 14:50 Neut % (Auto) 81.9 % (42.0-75.0) H 09/05/18 14:50 Lymph % (Auto) 8.0 % (21.0-51.0) L 09/05/18 14:50 [place] % (Auto) 9.1 % (0.0-13.0) 09/05/18 14:50 Eos % (Auto) 0.4 % (0.9-2.9) L 09/05/18 14:50 Baso % (Auto) 0.6 % (0.2-1.0) 09/05/18 14:50 Neut # (Auto) 6.2 x10^3/uL (2.2-4.8) H 09/05/18 14:50 Lymph # (Auto) 0.6 X10^3/uL (1.3-2.9) L 09/05/18 14:50 [place] # (Auto) 0.7 x10^3/uL (0.3-0.8) 09/05/18 14:50 Eos # (Auto) 0.0 x10^3/uL (0.0-0.2) 09/05/18 14:50 Baso # (Auto) 0.0 X10^3/uL (0.0-0.1) 09/05/18 14:50 Absolute Nucleated RBC 0.0 /100WBC 09/05/18 14:50 Plt Morphology Comment Normal (NORMAL) 08/30/18 04:20 RBC Morphology Abnormal (NORMAL) A 08/30/18 04:20 Hypochromasia Slight A 08/30/18 04:20 Sodium 134 mmol/L (136-145) L 09/05/18 14:50 Corrected Sodium 134 mmol/L (136-145) L 09/05/18 14:50 Potassium 4.8 mmol/L (3.5-5.1) 09/05/18 14:50 Chloride 100 mmol/L (98-107) 09/05/18 14:50 Carbon Dioxide 25.6 mmol/L (21-32) 09/05/18 14:50 BUN 11 mg/dL (7-18) 09/05/18 14:50 Creatinine 1.31 mg/dL (0.55-1.02) H 09/05/18 14:50 Est GFR (MDRD) Af Amer 50 (>60) L 09/05/18 14:50 Est GFR (MDRD) Non-Af 41 (>60) L 09/05/18 14:50 Glucose 111 mg/dL (65-99) H 09/05/18 14:50 Calcium 7.9 mg/dL (8.5-10.1) L 09/05/18 14:50 Corrected Calcium 9.3 mg/dL (8.5-10.1) 09/05/18 14:50 Total Bilirubin 0.60 mg/dL (0.2-1.0) 09/05/18 14:50 AST 23 Units/L (15-37) 09/05/18 14:50 ALT 20 Units/L (12-78) 09/05/18 14:50 Alkaline Phosphatase 139 Units/L (46-116) H 09/05/18 14:50 Total Protein 5.2 g/dL (6.4-8.2) L 09/05/18 14:50 Albumin 2.2 g/dL (3.4-5.0) L 09/05/18 14:50 Globulin 3.0 g/dL (2.5-4.5) 09/05/18 14:50 Albumin/Globulin Ratio 0.7 Ratio (1.1-2.1) L 09/05/18 14:50 - Plan (1) Status post-operative repair of type I or II open fracture of left hip Status: Acute Plan: WOUND CARE, PT. D/C BACTRIM, CONSULT PHARMACY FOR IV ATBIOTIC. ROUTINE LABS (2) Atrial fibrillation with controlled ventricular response Status: Acute
[2018-09-06] MEDS: SYNTHROID 75 mcg TAB PO SCH (16:08)
[2018-09-07] MEDS: BENTYL CAP 10 MG PO SCH ×3 (05:15→21:00)
[2018-09-07] MEDS: ZYVOX TAB 600 MG PO SCH ×2 (08:11→21:00)
[2018-09-07] MEDS: NORVASC TAB 5 MG PO SCH (08:11)
[2018-09-07] MEDS: PEPCID TAB 20 MG PO SCH (08:12)
[2018-09-07] MEDS: LIPITOR TAB 40 MG PO SCH (08:12)
[2018-09-07] MEDS: COLACE CAP 100 MG PO SCH ×2 (08:12→21:00)
[2018-09-07] MEDS: NEURONTIN CAP 100 MG PO SCH ×2 (08:12→21:00)
[2018-09-07] MEDS: COZAAR PO SCH (08:12)
[2018-09-07] MEDS: PROTONIX TAB 40 MG PO SCH (08:12)
[2018-09-07] MEDS: TAB-A-VITE PO SCH (08:12)
[2018-09-07] MEDS: LOPRESSOR TAB 25 MG PO SCH ×2 (08:12→21:00)
[2018-09-07] MEDS: XARELTO PO SCH (08:12)
[2018-09-07] MEDS: CORDARONE TAB 200 MG PO SCH ×2 (08:14→21:03)
[2018-09-07] MEDS: SYNTHROID 75 mcg TAB PO SCH (16:20)
[2018-09-07] MEDS ORDERED: BENTYL CAP 10 MG PO ONE (20:47)
[2018-09-08] MEDS: BENTYL CAP 10 MG PO SCH ×3 (05:33→21:35)
[2018-09-08 06:40] LABS: BASOPHILS % (AUTO) 0.9 % (0.2-1.0); EOSINOPHILS % (AUTO) 0.7 % (0.9-2.9); HEMATOCRIT 25.3 % (36.0-47.0); HEMOGLOBIN 8.7 g/dL (12.0-16.0); LYMPHOCYTES # (AUTO) 0.7 X10^3/uL (1.3-2.9); LYMPHOCYTES % (AUTO) 15.4 % (21.0-51.0); MEAN CORPUSCULAR HEMOGLOBIN 31.6 pg (27.0-34.0); MEAN CORPUSCULAR HGB CONC 34.5 g/dL (33.0-35.0); MEAN CORPUSCULAR VOLUME 91.7 fL (80.0-100.0); MEAN PLATELET VOLUME 7.9 fL (7.4-11.0); MONOCYTES # (AUTO) 0.4 x10^3/uL (0.3-0.8); MONOCYTES % (AUTO) 8.1 % (0.0-13.0); NEUTROPHILS # (AUTO) 3.4 x10^3/uL (2.2-4.8); NEUTROPHILS % (AUTO) 74.9 % (42.0-75.0); PLATELET COUNT 506 X10^3/uL (150.0-450.0); RED BLOOD COUNT 2.76 X10^6/uL (3.5-5.4); RED CELL DISTRIBUTION WIDTH 14.7 % (11.6-16.5); WHITE BLOOD COUNT 4.5 X10^3/uL (3.6-10.0)
[2018-09-08 07:25] LABS: ALANINE AMINOTRANSFERASE 21 Units/L (12-78); ALBUMIN 2.2 g/dL (3.4-5.0); ALKALINE PHOSPHATASE 169 Units/L (46-116); ASPARTATE AMINO TRANSFERASE 26 Units/L (15-37); BLOOD UREA NITROGEN 9 mg/dL (7-18); CALCIUM 7.6 mg/dL (8.5-10.1); CARBON DIOXIDE 21.6 mmol/L (21-32); CHLORIDE 102 mmol/L (98-107); CREATININE 1.12 mg/dL (0.55-1.02); SODIUM 138 mmol/L (136-145); TOTAL PROTEIN 5.4 g/dL (6.4-8.2); eGFR NON BLACK RACES 49 (>60)
[2018-09-08] MEDS: TAB-A-VITE PO SCH (08:53)
[2018-09-08] MEDS: COZAAR PO SCH (08:53)
[2018-09-08] MEDS: COLACE CAP 100 MG PO SCH ×2 (08:53→21:35)
[2018-09-08] MEDS: NEURONTIN CAP 100 MG PO SCH ×2 (08:53→21:35)
[2018-09-08] MEDS: LOPRESSOR TAB 25 MG PO SCH ×2 (08:53→21:35)
[2018-09-08] MEDS: PEPCID TAB 20 MG PO SCH (08:53)
[2018-09-08] MEDS: PROTONIX TAB 40 MG PO SCH (08:53)
[2018-09-08] MEDS: CORDARONE TAB 200 MG PO SCH ×2 (08:54→21:35)
[2018-09-08] MEDS: XARELTO PO SCH (08:54)
[2018-09-08] MEDS: NORVASC TAB 5 MG PO SCH (08:54)
[2018-09-08] MEDS: LIPITOR TAB 40 MG PO SCH (08:54)
[2018-09-08] MEDS: ZYVOX TAB 600 MG PO SCH ×2 (09:53→22:08)
[2018-09-08] MEDS: SYNTHROID 75 mcg TAB PO SCH (16:37)
[2018-09-09] MEDS: BENTYL CAP 10 MG PO SCH ×3 (05:36→21:02)
--- NOTE | 2018-09-09 09:08 | PCM.PROG ---
Progress Note - Progress Note for Day of Date of Exam: 09/08/18 - Subjective Subjective: 83 WF SWING BED STATUS FOLLOWING LEFT HIP FRACTURE REPAIR. PT IS CURRENTLY RECIEVING PHSYICAL THERAPY. PT HAD HAD MINIMAL DRAINAGE TO LEFT HIP DRESSING. WOUND CULTURE +ENTEROCOCCUS. ON PO ZYVOX, CULTURE REPORT FAXED TO DIAZ RODRIGUEZ. PT SEEN HIM FOR FOLLOW UP ON SUNDAY IN HIS OFFICE IN [place]. CONTINUE MILD SOILED DRESSING THIS AM, PT DENIES PAIN OR INCREASED REDNESS TO SURGICAL SITE. NO FEVER. PT REPORTS PAIN IS CURRENTLY CONTOLLED, DENIES ANY CP PALPITATIONS OR SOB - Past Medical Family Social History Past Med/Fam/Surg Hx: No changes since H&P Allergies: Allergies codeine Allergy (Verified 04/04/18 06:20) meperidine [From Demerol] Allergy (Verified 04/04/18 06:20) - Review of Systems ROS: No change since H&P - Vital Signs and I&O's Vital Signs: Temperature 98.4 F Pulse Rate [Left Brachial] 80 Respiratory Rate 20 Blood Pressure [Left Arm] 129/60 Blood Pressure [Right Arm] 117/59 Blood Pressure 138/64 O2 Sat by Pulse Oximetry 97 Intake and Output: Intake & Output 09/06/18 09/07/18 09/08/18 09/09/18 11:59 11:59 11:59 11:59 Intake Total 960 / 960 1090 / 1090 940 / 940 1420 / 1420 Balance 960 / 960 1090 / 1090 940 / 940 1420 / 1420 - Physical Exam Oriented: Person Eyes: Normal Ear: Normal Nose: Normal Throat: Normal Respiratory: Normal Cardiovascular: Normal : Normal Auscultation: Bowel Sounds: Normal Tenderness: Normal Skin: Wound Musculoskeletal: Left, Hip Mood Description: Calm Speech Pattern: Clear, Appropriate - Laboratory and Diagnostics Result Diagrams: 09/08/18 05:26 09/08/18 05:26 Labs: 09/02/18 15:05 Hip - Left Gram Stain - Final 09/02/18 15:05 Hip - Left Wound Culture - Final Enterococcus Faecalis Laboratory WBC 4.5 X10^3/uL (3.6-10.0) 09/08/18 05:26 RBC 2.76 X10^6/uL (3.5-5.4) L 09/08/18 05:26 Hgb 8.7 g/dL (12.0-16.0) L 09/08/18 05:26 Hct 25.3 % (36.0-47.0) L 09/08/18 05:26 MCV 91.7 fL (80.0-100.0) 09/08/18 05:26 MCH 31.6 pg (27.0-34.0) 09/08/18 05:26 MCHC 34.5 g/dL (33.0-35.0) 09/08/18 05:26 RDW 14.7 % (11.6-16.5) 09/08/18 05:26 Plt Count 506 X10^3/uL (150.0-450.0) H 09/08/18 05:26 Plt Count Comment Adequate (ADEQUATE) 08/30/18 04:20 MPV 7.9 fL (7.4-11.0) 09/08/18 05:26 Neut % (Auto) 74.9 % (42.0-75.0) 09/08/18 05:26 Lymph % (Auto) 15.4 % (21.0-51.0) L 09/08/18 05:26 [place] % (Auto) 8.1 % (0.0-13.0) 09/08/18 05:26 Eos % (Auto) 0.7 % (0.9-2.9) L 09/08/18 05:26 Baso % (Auto) 0.9 % (0.2-1.0) 09/08/18 05:26 Neut # (Auto) 3.4 x10^3/uL (2.2-4.8) 09/08/18 05:26 Lymph # (Auto) 0.7 X10^3/uL (1.3-2.9) L 09/08/18 05:26 [place] # (Auto) 0.4 x10^3/uL (0.3-0.8) 09/08/18 05:26 Eos # (Auto) 0.0 x10^3/uL (0.0-0.2) 09/08/18 05:26 Baso # (Auto) 0.0 X10^3/uL (0.0-0.1) 09/08/18 05:26 Absolute Nucleated RBC 0.0 /100WBC 09/08/18 05:26 Plt Morphology Comment Normal (NORMAL) 08/30/18 04:20 RBC Morphology Abnormal (NORMAL) A 08/30/18 04:20 Hypochromasia Slight A 08/30/18 04:20 Sodium 138 mmol/L (136-145) 09/08/18 05:26 Corrected Sodium TNP 09/08/18 05:26 Potassium 4.4 mmol/L (3.5-5.1) 09/08/18 05:26 Chloride 102 mmol/L (98-107) 09/08/18 05:26 Carbon Dioxide 21.6 mmol/L (21-32) 09/08/18 05:26 BUN 9 mg/dL (7-18) 09/08/18 05:26 Creatinine 1.12 mg/dL (0.55-1.02) H 09/08/18 05:26 Est GFR (MDRD) Af Amer 59 (>60) 09/08/18 05:26 Est GFR (MDRD) Non-Af 49 (>60) L 09/08/18 05:26 Glucose 92 mg/dL (65-99) 09/08/18 05:26 Calcium 7.6 mg/dL (8.5-10.1) L 09/08/18 05:26 Corrected Calcium 9.0 mg/dL (8.5-10.1) 09/08/18 05:26 Iron 28 ug/dL (50-175) L 09/06/18 14:39 Transferrin 118 mg/dL (202-364) L 09/06/18 14:39 Ferritin 524 ng/mL (8-252) H 09/06/18 14:39 Total Bilirubin 0.60 mg/dL (0.2-1.0) 09/08/18 05:26 AST 26 Units/L (15-37) 09/08/18 05:26 ALT 21 Units/L (12-78) 09/08/18 05:26 Alkaline Phosphatase 169 Units/L (46-116) H 09/08/18 05:26 Total Protein 5.4 g/dL (6.4-8.2) L 09/08/18 05:26 Albumin 2.2 g/dL (3.4-5.0) L 09/08/18 05:26 Globulin 3.2 g/dL (2.5-4.5) 09/08/18 05:26 Albumin/Globulin Ratio 0.7 Ratio (1.1-2.1) L 09/08/18 05:26 Vitamin B12 295 pg/mL (193-986) 09/06/18 14:39 Folate 13.5 ng/mL (>8.6) 09/06/18 14:39 - Plan (1) Status post-operative repair of type I or II open fracture of left hip Status: Acute Plan: WOUND CARE, PT. D/C BACTRIM, CONSULT PHARMACY FOR IV ATBIOTIC. ROUTINE LABS (2) Atrial fibrillation with controlled ventricular response Status: Acute
[2018-09-09] MEDS: ZYVOX TAB 600 MG PO SCH ×2 (09:20→21:03)
[2018-09-09] MEDS: LIPITOR TAB 40 MG PO SCH (09:20)
[2018-09-09] MEDS: TAB-A-VITE PO SCH (09:20)
[2018-09-09] MEDS: COLACE CAP 100 MG PO SCH ×2 (09:20→21:02)
[2018-09-09] MEDS: COZAAR PO SCH (09:20)
[2018-09-09] MEDS: NORVASC TAB 5 MG PO SCH (09:20)
[2018-09-09] MEDS: XARELTO PO SCH (09:20)
[2018-09-09] MEDS: LOPRESSOR TAB 25 MG PO SCH ×2 (09:21→21:02)
[2018-09-09] MEDS: NEURONTIN CAP 100 MG PO SCH ×2 (09:21→21:02)
[2018-09-09] MEDS: CORDARONE TAB 200 MG PO SCH ×2 (09:21→21:03)
[2018-09-09] MEDS: PEPCID TAB 20 MG PO SCH (09:21)
[2018-09-09] MEDS: PROTONIX TAB 40 MG PO SCH (09:21)
[2018-09-09] MEDS: SYNTHROID 75 mcg TAB PO SCH (15:31)
[2018-09-10] MEDS: BENTYL CAP 10 MG PO SCH ×3 (05:28→21:00)
[2018-09-10] MEDS: NEURONTIN CAP 100 MG PO SCH ×2 (08:25→20:50)
[2018-09-10] MEDS: COZAAR PO SCH (08:25)
[2018-09-10] MEDS: LIPITOR TAB 40 MG PO SCH (08:25)
[2018-09-10] MEDS: PROTONIX TAB 40 MG PO SCH (08:25)
[2018-09-10] MEDS: XARELTO PO SCH (08:25)
[2018-09-10] MEDS: NORVASC TAB 5 MG PO SCH (08:25)
[2018-09-10] MEDS: TAB-A-VITE PO SCH (08:25)
[2018-09-10] MEDS: COLACE CAP 100 MG PO SCH ×3 (08:25→20:51)
[2018-09-10] MEDS: LOPRESSOR TAB 25 MG PO SCH ×2 (08:25→20:51)
[2018-09-10] MEDS: PEPCID TAB 20 MG PO SCH (08:26)
[2018-09-10] MEDS: CORDARONE TAB 200 MG PO SCH ×2 (08:26→20:50)
[2018-09-10] MEDS: ZYVOX TAB 600 MG PO SCH (08:26)
[2018-09-10] MEDS: SYNTHROID 75 mcg TAB PO SCH (16:46)
[2018-09-11] MEDS: BENTYL CAP 10 MG PO SCH ×3 (05:21→21:14)
[2018-09-11] MEDS: COLACE CAP 100 MG PO SCH ×2 (08:59→21:14)
[2018-09-11] MEDS: TAB-A-VITE PO SCH (08:59)
[2018-09-11] MEDS: CORDARONE TAB 200 MG PO SCH ×3 (09:00→21:15)
[2018-09-11] MEDS: COZAAR PO SCH (09:00)
[2018-09-11] MEDS: PEPCID TAB 20 MG PO SCH (09:00)
[2018-09-11] MEDS: XARELTO PO SCH (09:00)
[2018-09-11] MEDS: LOPRESSOR TAB 25 MG PO SCH ×2 (09:00→21:14)
[2018-09-11] MEDS: NEURONTIN CAP 100 MG PO SCH ×2 (09:00→21:14)
[2018-09-11] MEDS: NORVASC TAB 5 MG PO SCH (09:00)
[2018-09-11] MEDS: LIPITOR TAB 40 MG PO SCH (09:00)
[2018-09-11] MEDS: PROTONIX TAB 40 MG PO SCH (09:00)
[2018-09-11] MEDS: ROXICODONE TAB 5 MG PO PRN (13:59)
[2018-09-11] MEDS: SYNTHROID 75 mcg TAB PO SCH (17:17)
[2018-09-11] MEDS: MEGACE PO SCH (21:14)
[2018-09-12] MEDS: BENTYL CAP 10 MG PO SCH (05:09)
[2018-09-12] MEDS: TAB-A-VITE PO SCH (09:00)
[2018-09-12] MEDS ORDERED: CORDARONE TAB 200 MG PO SCH ×2 (09:00)
[2018-09-12] MEDS: MEGACE PO SCH (09:00)
[2018-09-12] MEDS: PROTONIX TAB 40 MG PO SCH (09:00)
[2018-09-12] MEDS: COZAAR PO SCH (09:01)
[2018-09-12] MEDS: LOPRESSOR TAB 25 MG PO SCH (09:01)
[2018-09-12] MEDS: PEPCID TAB 20 MG PO SCH (09:01)
[2018-09-12] MEDS: NEURONTIN CAP 100 MG PO SCH (09:01)
[2018-09-12] MEDS: NORVASC TAB 5 MG PO SCH (09:01)
[2018-09-12] MEDS: XARELTO PO SCH (09:01)
[2018-09-12] MEDS: LIPITOR TAB 40 MG PO SCH (09:01)
[2018-09-12] MEDS: COLACE CAP 100 MG PO SCH (09:01)
[2018-09-12 09:39] VITALS: BP 154/70
--- NOTE | 2018-09-12 13:18 | RAD ---
Chest PA and lateral Indication: Cough, and congestion with acute onset Comparison: 04/04/2018 radiograph Findings: There is no pneumothorax. There is cardiomegaly and pleural thickening bilaterally with small effusions. Question left upper lobe lung nodule. Impression: Cardiomegaly and COPD change with effusions. Possible left upper lobe lung nodule. Mid thoracic and upper lumbar spine vertebral body wedging appears chronic. Follow-up is recommended to exclude pulmonary neoplasia. Nonemergent outpatient CT chest can be performed. Reported By:
--- NOTE | 2018-10-04 11:48 | PCM.DCPLAN ---
Discharge Summary - Admission Date Date of Admission: 08/29/18 - Discharge Date Discharge Date: 09/12/18 - Admission Diagnoses (1) Atrial fibrillation with controlled ventricular response Status: Acute (2) Status post-operative repair of type I or II open fracture of left hip Status: Acute (3) Weakness Status: Acute - Discharge Diagnoses Discharge Diagnosis: SAME ADMISSION DIAGNOSIS - Discharge Medications Discharge Medications: Home Medication List amiodarone 200 mg PO QDAY 08/29/18 [History] docusate sodium 100 mg PO BID 08/29/18 [History] losartan 50 mg PO QDAY 08/29/18 [History] metoprolol tartrate 25 mg PO BID 08/29/18 [History] oxycodone 5 mg PO Q6H PRN 08/29/18 [History] rivaroxaban 20 mg PO QDAY 08/29/18 [History] Prescriptions: - Hospital Course Vital Signs: Temperature 98.9 F Pulse Rate [Left Brachial] 70 Respiratory Rate 20 Blood Pressure [Left Arm] 154/70 Blood Pressure [Right Arm] 126/62 Blood Pressure 138/64 O2 Sat by Pulse Oximetry 97 Latest Lab Results: Laboratory Last Values WBC 4.5 X10^3/uL (3.6-10.0) 09/08/18 05:26 RBC 2.76 X10^6/uL (3.5-5.4) L 09/08/18 05:26 Hgb 8.7 g/dL (12.0-16.0) L 09/08/18 05:26 Hct 25.3 % (36.0-47.0) L 09/08/18 05:26 MCV 91.7 fL (80.0-100.0) 09/08/18 05:26 MCH 31.6 pg (27.0-34.0) 09/08/18 05:26 MCHC 34.5 g/dL (33.0-35.0) 09/08/18 05:26 RDW 14.7 % (11.6-16.5) 09/08/18 05:26 Plt Count 506 X10^3/uL (150.0-450.0) H 09/08/18 05:26 Plt Count Comment Adequate (ADEQUATE) 08/30/18 04:20 MPV 7.9 fL (7.4-11.0) 09/08/18 05:26 Neut % (Auto) 74.9 % (42.0-75.0) 09/08/18 05:26 Lymph % (Auto) 15.4 % (21.0-51.0) L 09/08/18 05:26 [place] % (Auto) 8.1 % (0.0-13.0) 09/08/18 05:26 Eos % (Auto) 0.7 % (0.9-2.9) L 09/08/18 05:26 Baso % (Auto) 0.9 % (0.2-1.0) 09/08/18 05:26 Neut # (Auto) 3.4 x10^3/uL (2.2-4.8) 09/08/18 05:26 Lymph # (Auto) 0.7 X10^3/uL (1.3-2.9) L 09/08/18 05:26 [place] # (Auto) 0.4 x10^3/uL (0.3-0.8) 09/08/18 05:26 Eos # (Auto) 0.0 x10^3/uL (0.0-0.2) 09/08/18 05:26 Baso # (Auto) 0.0 X10^3/uL (0.0-0.1) 09/08/18 05:26 Absolute Nucleated RBC 0.0 /100WBC 09/08/18 05:26 Plt Morphology Comment Normal (NORMAL) 08/30/18 04:20 RBC Morphology Abnormal (NORMAL) A 08/30/18 04:20 Hypochromasia Slight A 08/30/18 04:20 Sodium 138 mmol/L (136-145) 09/08/18 05:26 Corrected Sodium TNP 09/08/18 05:26 Potassium 4.4 mmol/L (3.5-5.1) 09/08/18 05:26 Chloride 102 mmol/L (98-107) 09/08/18 05:26 Carbon Dioxide 21.6 mmol/L (21-32) 09/08/18 05:26 BUN 9 mg/dL (7-18) 09/08/18 05:26 Creatinine 1.12 mg/dL (0.55-1.02) H 09/08/18 05:26 Est GFR (MDRD) Af Amer 59 (>60) 09/08/18 05:26 Est GFR (MDRD) Non-Af 49 (>60) L 09/08/18 05:26 Glucose 92 mg/dL (65-99) 09/08/18 05:26 Calcium 7.6 mg/dL (8.5-10.1) L 09/08/18 05:26 Corrected Calcium 9.0 mg/dL (8.5-10.1) 09/08/18 05:26 Iron 28 ug/dL (50-175) L 09/06/18 14:39 Transferrin 118 mg/dL (202-364) L 09/06/18 14:39 Ferritin 524 ng/mL (8-252) H 09/06/18 14:39 Total Bilirubin 0.60 mg/dL (0.2-1.0) 09/08/18 05:26 AST 26 Units/L (15-37) 09/08/18 05:26 ALT 21 Units/L (12-78) 09/08/18 05:26 Alkaline Phosphatase 169 Units/L (46-116) H 09/08/18 05:26 Total Protein 5.4 g/dL (6.4-8.2) L 09/08/18 05:26 Albumin 2.2 g/dL (3.4-5.0) L 09/08/18 05:26 Globulin 3.2 g/dL (2.5-4.5) 09/08/18 05:26 Albumin/Globulin Ratio 0.7 Ratio (1.1-2.1) L 09/08/18 05:26 Vitamin B12 295 pg/mL (193-986) 09/06/18 14:39 Folate 13.5 ng/mL (>8.6) 09/06/18 14:39 Hospital Course: 83 WF SWING BED STATUS FOLLOWING LEFT HIP FRACTURE REPAIR. PT RECEIVED PHYSICAL THERAPY. PT HAD HAD MINIMAL DRAINAGE TO LEFT HIP DRESSING. WOUND CULTURE +ENTER OCOCCUS. ON PO ZYVOX, CULTURE REPORT FAXED TO DIAZ RODRIGUEZ. PT SEEN HIM FOR FOLLOW UP ON SUNDAY IN HIS OFFICE IN [place]. CONTINUE MILD SOILED DRESSING THIS AM, PT DENIED PAIN OR INCREASED REDNESS TO SURGICAL SITE. NO FEVER. PT REPORTS PAIN WAS CURRENTLY CONTROLLED. PATIENT IMPROVED AND WAS DISCHARGED TO SNF. - Discharge Plan Disposition: SNF Condition: Stable - Follow ups/Referrals Follow ups/Referrals: [facility] [Outside] (PT DC/D TO [place] FOR CONTINUE CARE HOME/THERAPY.) AFSHAN TELLES [Primary Care Provider] - 1 WEEK - Instructions
== END 2018-09-12 14:00 | DRG 561 ==
LOC: MED/SURG 11:16
PROVIDERS: ADMIT Internal Medicine; ATTEND Internal Medicine
DX: W18.39XD Other fall on same level, subsequent encounter; Z98.890 Other specified postprocedural states; B95.2 Enterococcus as the cause of diseases classified elsewhere; I48.91 Unspecified atrial fibrillation; I10 Essential (primary) hypertension; Z91.81 History of falling; S72.102D Unspecified trochanteric fracture of left femur, subsequent encounter for closed fracture with routine healing
CPT/HCPCS: 36415; 71020; 71046; 80053; 82607; 82728; 82746; 83540; 84466; 85014; 85018; 85025; 87070; 87075; 87077; 87186; 87205; 97110; 97112; 97116; 97163; 97167; 97530; 97535; S0179; S0181

== ENCOUNTER 2020-08-11 07:39 | Inpatient (IN) ==
[2020-08-11] MEDS ORDERED: XOPENEX 1.25 MG/3 ML NEBULE NEB ONE (07:51)
[2020-08-11 07:57] LABS: ABG BASE EXCESS -13.4 mmol/L (-2.0-2.0)
[2020-08-11 07:58] LABS: ABG ALLEN TEST POS; ABG HCO3 11.9 mmol/L (22-26)
--- NOTE | 2020-08-11 08:02 | DR.SOBA ---
HPI Time Seen Time Seen by Provider: 08/11/20 07:47 Complaints Chief Complaint Doctors Comments: Patient brought in by EMS for dyspnea. Patient was active up to Thusday when she fell and broke her right clavicle. Since the she has stayed in a chair most of the time and got short of breath when trying to walk only 8 feet. EMS brought patient in on oxygen due to O2 saturation in the 70s. Patient arrived in [place] with 75% sats on 2liters Reviewed Nurses Notes Reviewed: Yes Source History Provided: Family Member Mode of Arrival Mode of Arrival: EMS Timing Onset of Chief Complaint: 08/06/20 Duration Duration: Days Context Onset:: At Rest PE Risk Factors:: Immobilization (has afib but on Xarelto) History of:: None Currently on:: Neither Prehospital Care:: O2 Modifying Factors Worsens:: Exertion Improves:: Other (oxyhen) Associated Signs and Symptoms Associated Signs and Symptoms: None If Chest Pain Quality: denies Sharp, Stabbing, Squeezing, Pressure like, Heavy, Crushing, Burning, Aching, Pleuritic and Other If Cough Cough: None PMH PMH Past Medical History: Anemia, Arthritis, Dyslipidemia, GERD, Hypertension, Hypothyroidism and PUD Past Surgical History: Yes Surgical History: Cholecystectomy, Hysterectomy, Ortho Surgery and Other Family History Family Medical History: Cancer and [place] Social History Do you use any recreational Drugs:: No ROS Review of Systems Constitutional: No Symptoms Reported Eyes: No Symptoms Reported ENTM: No Symptoms Reported Respiratoy: Short of Breath Cardiovascular: No Symptoms Reported Gastrointestinal/Abdominal: No Symptoms Reported Genitourinary: No Symptoms Reported Neurological: No Symptoms Reported Musculoskeletal: No Symptoms Reported Integumentary: No Symptoms Reported Hematologic/Lymphatic: No Symptoms Reported Endocrine: No Symptoms Reported Psychiatric: No Symptoms Reported All Other Systems: Reviewed and Negative PE Vital Signs Vitals: Temperature 97.0 F Pulse Rate 60 Respiratory Rate 31 Blood Pressure [Left Arm] 154/70 Blood Pressure [Right Arm] 127/82 Blood Pressure 130/80 O2 Sat by Pulse Oximetry 100 General Limitations: No Limitations General Appearance: Alert and Other (not answering questions) Head Head Exam: Normal Inspection; negative Atraumatic and Normocephalic Eyes Eye exam: Normal Appearance and EOMI ENT ENT Exam: Normal Exam and Normal Oropharynx Neck Neck Exam: Normal Inspection and Trachea Midline Chest Chest Inspection: Normal Inspection Respiratory Respiratory Exam: Normal Lung Sounds Bilat and Respiratory Distress (rapid respirations) Respiratory Exam: Bilateral: Clear to Auscultation Cardiovascular Cardiovascular Exam: Regular Rate Abdominal Exam Abdominal Exam: Normal Inspection, Normal Bowel Sounds, Soft and Tenderness; negative Distention and Guarding Extremities Extremities Exam: Normal Inspection Back Back Exam: Normal Inspection Neurologic Neurological Exam: Other (not responding to questions, awake looking around) Psychiatric Psychiatric Exam: Flat Affect Skin Skin Exam: Normal Color COURSE Treatment Treatment: 804: turned over to Dr. Ga ROR Labs Reviewed Result Diagrams: 08/12/20 12:43 08/12/20 16:30 Laboratory: WBC 10.8 X10^3/uL (3.6-10.0) H 08/11/20 07:45 RBC 2.71 X10^6/uL (3.5-5.4) L 08/11/20 07:45 Hgb 8.0 g/dL (12.0-16.0) L 08/11/20 07:45 Hct 24.2 % (36.0-47.0) L 08/11/20 07:45 MCV 89.2 fL (80.0-100.0) 08/11/20 07:45 MCH 29.4 pg (27.0-34.0) 08/11/20 07:45 MCHC 32.9 g/dL (33.0-35.0) L 08/11/20 07:45 RDW 15.5 % (11.6-16.5) 08/11/20 07:45 Plt Count 194 X10^3/uL (150.0-450.0) 08/11/20 07:45 MPV 9.3 fL (7.4-11.0) 08/11/20 07:45 Neut % (Auto) 89.1 % (42.0-75.0) H 08/11/20 07:45 Lymph % (Auto) 4.7 % (21.0-51.0) L 08/11/20 07:45 [place] % (Auto) 6.0 % (0.0-13.0) 08/11/20 07:45 Eos % (Auto) 0.0 % (0.9-2.9) L 08/11/20 07:45 Baso % (Auto) 0.2 % (0.2-1.0) 08/11/20 07:45 Neut # (Auto) 9.6 x10^3/uL (2.2-4.8) H 08/11/20 07:45 Lymph # (Auto) 0.5 X10^3/uL (1.3-2.9) L 08/11/20 07:45 [place] # (Auto) 0.6 x10^3/uL (0.3-0.8) 08/11/20 07:45 Eos # (Auto) 0.0 x10^3/uL (0.0-0.2) 08/11/20 07:45 Baso # (Auto) 0.0 X10^3/uL (0.0-0.1) 08/11/20 07:45 Absolute Nucleated RBC 0.0 /100WBC 08/11/20 07:45 PT 41.5 SECONDS (11.8-14.3) 08/11/20 07:45 INR Target Range - 08/11/20 07:45 INR 4.51 (0.8-1.3) H 08/11/20 07:45 D-Dimer 3.19 ug/ml (0.0-0.57) H* 08/11/20 07:45 Sample Site Rra 08/11/20 07:54 ABG pH 7.270 (7.35-7.45) L 08/11/20 07:54 ABG pCO2 26.0 mmHg (35.0-45.0) L 08/11/20 07:54 ABG pO2 49.0 mmHg (80.0-100.0) L* 08/11/20 07:54 ABG HCO3 11.9 mmol/L (22-26) L* 08/11/20 07:54 ABG O2 Saturation 78.0 % (90-100) L* 08/11/20 07:54 ABG Base Excess -13.4 mmol/L (-2.0-2.0) L 08/11/20 07:54 Marco Antonio Test Pos 08/11/20 07:54 A-a Gradient 175.0 mmHg 08/11/20 07:54 FiO2 36.0 08/11/20 07:54 Blood Gas Comments Pt leslie well eb 08/11/20 07:54 Sodium 136 mmol/L (136-145) 08/11/20 07:45 Corrected Sodium 137 mmol/L (136-145) 08/11/20 07:45 Potassium 4.8 mmol/L (3.5-5.1) 08/11/20 07:45 Chloride 104 mmol/L (98-107) 08/11/20 07:45 Carbon Dioxide 13.2 mmol/L (21-32) L* 08/11/20 07:45 BUN 43 mg/dL (7-18) H 08/11/20 07:45 Creatinine 3.39 mg/dL (0.55-1.02) H 08/11/20 07:45 Est GFR (MDRD) Af Amer 16 (>60) L 08/11/20 07:45 Est GFR (MDRD) Non-Af 14 (>60) L 08/11/20 07:45 Glucose 139 mg/dL (65-99) H 08/11/20 07:45 Calcium 8.7 mg/dL (8.5-10.1) 08/11/20 07:45 Corrected Calcium 10.0 mg/dL (8.5-10.1) 08/11/20 07:45 Iron 29 ug/dL (50-175) L 08/11/20 07:45 Transferrin 116 mg/dL (202-364) L 08/11/20 07:45 Ferritin 997 ng/mL (8-252) H 08/11/20 07:45 Total Bilirubin 0.40 mg/dL (0.2-1.0) 08/11/20 07:45 AST 52 Units/L (15-37) H 08/11/20 07:45 ALT 35 Units/L (12-78) 08/11/20 07:45 Alkaline Phosphatase 83 Units/L (46-116) 08/11/20 07:45 Creatine Kinase 142 Units/L (26-192) 08/11/20 07:45 CK-MB (CK-2) 3.2 ng/mL (0-4.0) 08/11/20 07:45 CK/CKMB % Calc 2.3 % (<4) 08/11/20 07:45 Troponin I < 0.02 ng/mL (0-1.5) 08/11/20 07:45 Total Protein 6.0 g/dL (6.4-8.2) L 08/11/20 07:45 Albumin 2.4 g/dL (3.4-5.0) L 08/11/20 07:45 Globulin 3.6 g/dL (2.5-4.5) 08/11/20 07:45 Albumin/Globulin Ratio 0.7 Ratio (1.1-2.1) L 08/11/20 07:45 Vitamin B12 > 2000 pg/mL (193-986) H 08/11/20 07:45 Folate 4.6 ng/mL (>8.6) L 08/11/20 07:45 TSH 3rd Generation 1.957 uIU/mL (0.358-3.74) 08/11/20 07:45 Specimen Type Catherized urine 08/11/20 09:55 Urine Color Dark yellow (YELLOW) 08/11/20 09:55 Urine Appearance Clear (CLEAR) 08/11/20 09:55 Urine pH 5.0 (5.0 - 8.0) 08/11/20 09:55 Ur Specific Daisy 1.025 (1.000-1.030) 08/11/20 09:55 Urine Protein 2+ (NEGATIVE) 08/11/20 09:55 Urine Glucose (UA) Negative (NEGATIVE) 08/11/20 09:55 Urine Ketones Negative (NEGATIVE) 08/11/20 09:55 Urine Occult Blood Negative (NEGATIVE) 08/11/20 09:55 Urine Nitrite Negative (NEGATIVE) 08/11/20 09:55 Urine Bilirubin 1+ (NEGATIVE) 08/11/20 09:55 Urine Urobilinogen Normal (NORMAL) 08/11/20 09:55 Ur Leukocyte Esterase Negative (NEGATIVE) 08/11/20 09:55 Urine RBC None seen /HPF (0-3) 08/11/20 09:55 Urine WBC 0-2 /HPF (0-5) 08/11/20 09:55 Ur Squamous Epith Cells Rare /HPF (NEGATIVE) 08/11/20 09:55 Amorphous Sediment 1+ /HPF (NEGATIVE) 08/11/20 09:55 Urine Bacteria Trace /HPF (NEGATIVE) 08/11/20 09:55 Ur Culture Indicated? No/not indicated 08/11/20 09:55 SARS-CoV-2 (PCR) Negative (NEGATIVE) 08/11/20 10:13 Opioid Opioid Risk Tool Age (Armando box if 16-45): No History of Preadolescent Sexual Abuse: No Total: 0 Total Score Risk Category: Low Risk Copyright: Robby BARRY predicting aberrant behaviors Diagnosis Discharge Problem: Metabolic acidosis, CKD (chronic kidney disease) stage 5, GFR less than 15 ml/min, Benign essential HTN Respiratory failure with hypoxia Qualifiers: Chronicity: acute Qualified Code(s): J96.01 - Acute respiratory failure with hypoxia Pneumonia Qualifiers: Pneumonia type: due to unspecified organism Laterality: left Lung location: lower lobe of lung Qualified Code(s): J18.9 - Pneumonia, unspecified organism A-fib Qualifiers: Atrial fibrillation type: longstanding persistent Qualified Code(s): I48.11 - Longstanding persistent atrial fibrillation Anemia Qualifiers: Anemia type: unspecified type Qualified Code(s): D64.9 - Anemia, unspecified Instructions Forms: Excuse From Work or School Precautions for COVID19 Patient Portal Social Distancing
[2020-08-11 08:17] LABS: BASOPHILS % (AUTO) 0.2 % (0.2-1.0); HEMATOCRIT 24.2 % (36.0-47.0); LYMPHOCYTES # (AUTO) 0.5 X10^3/uL (1.3-2.9); LYMPHOCYTES % (AUTO) 4.7 % (21.0-51.0); MEAN CORPUSCULAR HEMOGLOBIN 29.4 pg (27.0-34.0); MEAN CORPUSCULAR HGB CONC 32.9 g/dL (33.0-35.0); MEAN CORPUSCULAR VOLUME 89.2 fL (80.0-100.0); MEAN PLATELET VOLUME 9.3 fL (7.4-11.0); MONOCYTES # (AUTO) 0.6 x10^3/uL (0.3-0.8); NEUTROPHILS # (AUTO) 9.6 x10^3/uL (2.2-4.8); NEUTROPHILS % (AUTO) 89.1 % (42.0-75.0); PLATELET COUNT 194 X10^3/uL (150.0-450.0); RED BLOOD COUNT 2.71 X10^6/uL (3.5-5.4); RED CELL DISTRIBUTION WIDTH 15.5 % (11.6-16.5); WHITE BLOOD COUNT 10.8 X10^3/uL (3.6-10.0)
--- NOTE | 2020-08-11 08:28 | RAD ---
HISTORYSOBSTUDYCHEST, 1 [id number] view of the chestFINDINGSCardiac silhouette is mildly enlarged. Atherosclerotic plaque of the aortic knob noted. Mildly worse appearance left lower lung patchy opacity. Bilateral diffuse interstitial opacities remain. Blunted costophrenic sulci. No pneumothorax.IMPRESSIONWorsened left lower lung patchy opacity suspicious for pneumonia. Otherwise similar. Small pleural effusions versus scar.Electronically signed by: José Capps (Aug 11, 2020 08:26:51)
[2020-08-11 08:36] LABS: ALANINE AMINOTRANSFERASE 35 Units/L (12-78); ALBUMIN 2.4 g/dL (3.4-5.0); ALKALINE PHOSPHATASE 83 Units/L (46-116); ASPARTATE AMINO TRANSFERASE 52 Units/L (15-37); BLOOD UREA NITROGEN 43 mg/dL (7-18); CALCIUM 8.7 mg/dL (8.5-10.1); CHLORIDE 104 mmol/L (98-107); CKMB % 2.3 % (<4); COR NA(FOR HYPERGLY) 137 mmol/L (136-145); CREATINE KINASE 142 Units/L (26-192); CREATINE KINASE MB 3.2 ng/mL (0-4.0); CREATININE 3.39 mg/dL (0.55-1.02); SODIUM 136 mmol/L (136-145); TROPONIN I < 0.02 ng/mL (0-1.5); eGFR NON BLACK RACES 14 (>60)
[2020-08-11 08:37] LABS: CARBON DIOXIDE 13.2 mmol/L (21-32)
--- NOTE | 2020-08-11 09:07 | DR.SOBA ---
HPI Time Seen Time Seen by Provider: 08/11/20 07:47 Primary Care Physician Primary Care Physician: RONALD BENTIEZ HPI Comment HPI Comment: An 85 y/o female brought into the ED for evaluation of dyspnea for over a week now. It is getting progressive and now with minimal exertion. She had fallen at home on ()-08/05/2020. He had an outpt. CXR or Rib series on Sunday08/09/2020 that reportedly was interpreted as Complaints Chief Complaint:: EMS BRINGS PT. IN WITH C/O SOB. SON STATES PT. FELL ONE WEEK AGO AND HAS A FRACTURED RIGHT CLAVICLE. HE STATES SINCE PT. FELL SHE HAS BEEN IN A CHAIR AT HOME AND HAS BEEN LETHARGIC AND HAD SOME CONFUSION. HE STATES PT. HAD A UTI AND WAS TREATED FOR IT WITHIN THE PAST WEEK PER MICHELLE LOCKE. BRUISING NOTED TO RIGHT CHEST WALL. COVID-19 Coronavirus risk:travel/contact w/high risk person: No Has patient experienced Coronavirus symptoms: Yes Coronavirus symptoms experienced: Shortness of Breath Source History Provided: Family Member Mode of Arrival Mode of Arrival: EMS Timing Onset of Chief Complaint: 08/06/20 PMH PMH Past Medical History: Yes Past Medical History: Anemia, Arthritis, Dyslipidemia, GERD, Hypertension, Hypothyroidism and PUD Past Surgical History: Yes Surgical History: Cholecystectomy, Hysterectomy, Ortho Surgery and Other Family History History of Family Medical Conditions: Yes Family Medical History: Cancer and [place] Social History Does patient currently use any type of tobacco product: No Have you used tobacco products in the last 12 months: No Type of Tobacco Use: None Does any household member use tobacco: No Alcohol Use: None Do you use any recreational Drugs:: No Lives With: Family Lives Where: Home Travel Risk Coronavirus risk:travel/contact w/high risk person: No Has patient experienced Coronavirus symptoms: Yes Coronavirus symptoms experienced: Shortness of Breath Infectious screening In the last 2 months have you had wt loss of >10#?: NO Have you had fever, night sweats or hemotysis?: No Have you traveled outside the country in the last 6 months?: No Isolation: Droplet PE Vital Signs Vitals: Temperature 97.0 F Pulse Rate 60 Respiratory Rate 31 Blood Pressure [Left Arm] 154/70 Blood Pressure [Right Arm] 127/82 Blood Pressure 130/80 O2 Sat by Pulse Oximetry 100 COURSE Treatment Treatment: I had spoken with Dr. Pearce at beginning of shift, pt's son to obtain further and clarifying history and later to discuss findings and treatment recommendations as well as to discuss CODE STATUS for the pt. I also had discussed presentation, findings and treatment recommendation with the admitting physician. Reevaluation 1st: Unchanged Education/Counseling Education/Counseling: Patient, Family, Education and Counseling Educated On: Treatment, Diagnosis, Prognosis (I spoke with the pt's son, (Mr. De Oliveira) about his thoughts on need for the pt. to be placed on mechanical haydee tilator and perform CPR if the need arises. He said absolutely not to perform any of these. However, these are his thoughts and he will speak [facility] and Needs for Follow Up ROR Labs Reviewed Result Diagrams: 08/11/20 07:45 08/11/20 07:45 Laboratory: WBC 10.8 X10^3/uL (3.6-10.0) H 08/11/20 07:45 RBC 2.71 X10^6/uL (3.5-5.4) L 08/11/20 07:45 Hgb 8.0 g/dL (12.0-16.0) L 08/11/20 07:45 Hct 24.2 % (36.0-47.0) L 08/11/20 07:45 MCV 89.2 fL (80.0-100.0) 08/11/20 07:45 MCH 29.4 pg (27.0-34.0) 08/11/20 07:45 MCHC 32.9 g/dL (33.0-35.0) L 08/11/20 07:45 RDW 15.5 % (11.6-16.5) 08/11/20 07:45 Plt Count 194 X10^3/uL (150.0-450.0) 08/11/20 07:45 MPV 9.3 fL (7.4-11.0) 08/11/20 07:45 Neut % (Auto) 89.1 % (42.0-75.0) H 08/11/20 07:45 Lymph % (Auto) 4.7 % (21.0-51.0) L 08/11/20 07:45 Knott % (Auto) 6.0 % (0.0-13.0) 08/11/20 07:45 Eos % (Auto) 0.0 % (0.9-2.9) L 08/11/20 07:45 Baso % (Auto) 0.2 % (0.2-1.0) 08/11/20 07:45 Neut # (Auto) 9.6 x10^3/uL (2.2-4.8) H 08/11/20 07:45 Lymph # (Auto) 0.5 X10^3/uL (1.3-2.9) L 08/11/20 07:45 Knott # (Auto) 0.6 x10^3/uL (0.3-0.8) 08/11/20 07:45 Eos # (Auto) 0.0 x10^3/uL (0.0-0.2) 08/11/20 07:45 Baso # (Auto) 0.0 X10^3/uL (0.0-0.1) 08/11/20 07:45 Absolute Nucleated RBC 0.0 /100WBC 08/11/20 07:45 PT 41.5 SECONDS (11.8-14.3) 08/11/20 07:45 INR Target Range - 08/11/20 07:45 INR 4.51 (0.8-1.3) H 08/11/20 07:45 D-Dimer 3.19 ug/ml (0.0-0.57) H* 08/11/20 07:45 Sample Site Rra 08/11/20 07:54 ABG pH 7.270 (7.35-7.45) L 08/11/20 07:54 ABG pCO2 26.0 mmHg (35.0-45.0) L 08/11/20 07:54 ABG pO2 49.0 mmHg (80.0-100.0) L* 08/11/20 07:54 ABG HCO3 11.9 mmol/L (22-26) L* 08/11/20 07:54 ABG O2 Saturation 78.0 % (90-100) L* 08/11/20 07:54 ABG Base Excess -13.4 mmol/L (-2.0-2.0) L 08/11/20 07:54 Marco Antonio Test Pos 08/11/20 07:54 A-a Gradient 175.0 mmHg 08/11/20 07:54 FiO2 36.0 08/11/20 07:54 Blood Gas Comments Pt leslie well eb 08/11/20 07:54 Sodium 136 mmol/L (136-145) 08/11/20 07:45 Corrected Sodium 137 mmol/L (136-145) 08/11/20 07:45 Potassium 4.8 mmol/L (3.5-5.1) 08/11/20 07:45 Chloride 104 mmol/L (98-107) 08/11/20 07:45 Carbon Dioxide 13.2 mmol/L (21-32) L* 08/11/20 07:45 BUN 43 mg/dL (7-18) H 08/11/20 07:45 Creatinine 3.39 mg/dL (0.55-1.02) H 08/11/20 07:45 Est GFR (MDRD) Af Amer 16 (>60) L 08/11/20 07:45 Est GFR (MDRD) Non-Af 14 (>60) L 08/11/20 07:45 Glucose 139 mg/dL (65-99) H 08/11/20 07:45 Calcium 8.7 mg/dL (8.5-10.1) 08/11/20 07:45 Corrected Calcium 10.0 mg/dL (8.5-10.1) 08/11/20 07:45 Total Bilirubin 0.40 mg/dL (0.2-1.0) 08/11/20 07:45 AST 52 Units/L (15-37) H 08/11/20 07:45 ALT 35 Units/L (12-78) 08/11/20 07:45 Alkaline Phosphatase 83 Units/L (46-116) 08/11/20 07:45 Creatine Kinase 142 Units/L (26-192) 08/11/20 07:45 CK-MB (CK-2) 3.2 ng/mL (0-4.0) 08/11/20 07:45 CK/CKMB % Calc 2.3 % (<4) 08/11/20 07:45 Troponin I < 0.02 ng/mL (0-1.5) 08/11/20 07:45 Total Protein 6.0 g/dL (6.4-8.2) L 08/11/20 07:45 Albumin 2.4 g/dL (3.4-5.0) L 08/11/20 07:45 Globulin 3.6 g/dL (2.5-4.5) 08/11/20 07:45 Albumin/Globulin Ratio 0.7 Ratio (1.1-2.1) L 08/11/20 07:45 Specimen Type Catherized urine 08/11/20 09:55 Urine Color Dark yellow (YELLOW) 08/11/20 09:55 Urine Appearance Clear (CLEAR) 08/11/20 09:55 Urine pH 5.0 (5.0 - 8.0) 08/11/20 09:55 Ur Specific [place] 1.025 (1.000-1.030) 08/11/20 09:55 Urine Protein 2+ (NEGATIVE) 08/11/20 09:55 Urine Glucose (UA) Negative (NEGATIVE) 08/11/20 09:55 Urine Ketones Negative (NEGATIVE) 08/11/20 09:55 Urine Occult Blood Negative (NEGATIVE) 08/11/20 09:55 Urine Nitrite Negative (NEGATIVE) 08/11/20 09:55 Urine Bilirubin 1+ (NEGATIVE) 08/11/20 09:55 Urine Urobilinogen Normal (NORMAL) 08/11/20 09:55 Ur Leukocyte Esterase Negative (NEGATIVE) 08/11/20 09:55 Urine RBC None seen /HPF (0-3) 08/11/20 09:55 Urine WBC 0-2 /HPF (0-5) 08/11/20 09:55 Ur Squamous Epith Cells Rare /HPF (NEGATIVE) 08/11/20 09:55 Amorphous Sediment 1+ /HPF (NEGATIVE) 08/11/20 09:55 Urine Bacteria Trace /HPF (NEGATIVE) 08/11/20 09:55 Ur Culture Indicated? No/not indicated 08/11/20 09:55 EKG Rate: 64 [place]: Normal Rhythm: Afib Block: None Hypertrophy: None ST: Normal Opioid Opioid Risk Tool Age (Faviola box if 16-45): No History of Preadolescent Sexual Abuse: No Total: 0 Total Score Risk Category: Low Risk Copyright: Robby BARRY predicting aberrant behaviors Diagnosis Discharge Problem: Metabolic acidosis, CKD (chronic kidney disease) stage 5, GFR less than 15 ml/min, Benign essential HTN Respiratory failure with hypoxia Qualifiers: Chronicity: acute Qualified Code(s): J96.01 - Acute respiratory failure with hypoxia Pneumonia Qualifiers: Pneumonia type: due to unspecified organism Laterality: left Lung location: lower lobe of lung Qualified Code(s): J18.9 - Pneumonia, unspecified organism A-fib Qualifiers: Atrial fibrillation type: longstanding persistent Qualified Code(s): I48.11 - Longstanding persistent atrial fibrillation Anemia Qualifiers: Anemia type: unspecified type Qualified Code(s): D64.9 - Anemia, unspecified Instructions Forms: Precautions for COVID19 Patient Portal Social Distancing ADDITIONAL NOTES Additional Notes Additional Notes: Name: VALERIA DE OLIVEIRA : 1935 Sex: F Location: ER Order Number(s): [id number] Procedure(s):CHEST, 1 VIEW Ordering Physician: FAVIOLA PEARCE Primary Care: Aide Benitez Service Date: 08/11/20 Service Time: 804 HISTORY SOB STUDY CHEST, 1 VIEW COMPARISON 08/09/2020 TECHNIQUE AP view of the chest FINDINGS Cardiac silhouette is mildly enlarged. Atherosclerotic plaque of the aortic knob noted. Mildly worse appearance left lower lung patchy opacity. Bilateral diffuse interstitial opacities remain. Blunted costophrenic sulci. No pneumothorax. IMPRESSION Worsened left lower lung patchy opacity suspicious for pneumonia. Otherwise similar. Small pleural effusions versus scar. Electronically signed by: José Capps (Aug 11, 2020 08:26:51)
[2020-08-11] MEDS ORDERED: NS 1000 ML 1,000 ML ONE (09:33)
[2020-08-11] MEDS ORDERED: LEVAQUIN PREMIX IV 750 MG 750 MG/150 ML BAG IV ONE (09:33)
[2020-08-11] MEDS: NS 1000 ML 1,000 ML IV SCH (09:55)
[2020-08-11 09:59] LABS: BILIRUBIN,URINE 1+ (NEGATIVE); BLOOD/HEMOGLOBIN,URINE NEGATIVE (NEGATIVE); GLUCOSE, URINE NEGATIVE (NEGATIVE); KETONES,URINE NEGATIVE (NEGATIVE); LEUKOCYTE ESTERASE ,URINE NEGATIVE (NEGATIVE); NITRITES,URINE NEGATIVE (NEGATIVE); PROTEIN,URINE 2+ (NEGATIVE); UROBILINOGEN,URINE NORMAL (NORMAL)
[2020-08-11 10:15] LABS: APPEARANCE,URINE CLEAR (CLEAR); COLOR,URINE DARK YELLOW (YELLOW)
[2020-08-11 10:16] LABS: AMORPHOUS SEDIMENT,UR 1+ /HPF (NEGATIVE); BACTERIA,URINE TRACE /HPF (NEGATIVE); RBC,URINE NONE SEEN /HPF (0-3); SQUAMOUS EPITHELIAL CELL,UR RARE /HPF (NEGATIVE)
[2020-08-11] MEDS ORDERED: BENADRYL INJ 50 MG VIAL IVP PRN (10:50)
[2020-08-11] MEDS ORDERED: TYLENOL 325 MG TAB PO PRN (10:50)
[2020-08-11] MEDS ORDERED: NS 500 ML IV 500 ML IV ONE (10:50)
[2020-08-11] MEDS ORDERED: CORDARONE TAB 200 MG PO SCH (12:12)
[2020-08-11] MEDS ORDERED: XARELTO PO SCH ×2 (12:12→21:00)
[2020-08-11] MEDS ORDERED: LEVAQUIN PREMIX IV 750 MG 750 MG/150 ML BAG IV NR (12:30)
[2020-08-11 12:57] LABS: TSH (3RD GENERATION) 1.957 uIU/mL (0.358-3.74)
[2020-08-11] MEDS: ROBITUSSIN DM PO SCH ×3 (13:07→20:31)
[2020-08-11] MEDS: ZOSYN VIAL 3.375 GRAMS 3.375 G in NS 100 ML IV + SPIKE MINIBAG* 100 ML IV SCH ×2 (13:07→20:24)
[2020-08-11 13:36] LABS: IRON 29 ug/dL (50-175)
[2020-08-11] MEDS ORDERED: ZOSYN VIAL 4.5 GRAMS 4.5 G in NS 100 ML IV + SPIKE MINIBAG* 100 ML IV SCH (14:00)
[2020-08-11 15:10] VITALS: BMI 19.5
[2020-08-11] MEDS ORDERED: NS 250 ML IV 250 ML IV ONE (15:33)
[2020-08-11] MEDS ORDERED: ZOFRAN INJ 4 MG VIAL IVP PRN (16:54)
[2020-08-11] MEDS ORDERED: ZOFRAN INJ 4 MG VIAL ONE (16:56)
--- NOTE | 2020-08-11 18:21 | RAD ---
EXAM: ABDOMEN X-RAY SERIES WITH CXRHISTORY: Abdominal pain.TECHNIQUE: Supine and erect views of the abdomen; frontal single view CXRCOMPARISON: None.FINDINGS:ABDOMEN: Abundant fecal material is seen within the large bowel loops; nonspecific finding; rule out constipation. The bowel gas pattern is otherwise nonspecific and nonobstructive. There is no gross organomegaly, free intraperitoneal air, or suspicious calcifications seen. There is severe aortoiliac atherosclerosis. Multilevel DDD is seen throughout the lumbar spine, progressively worse distally. The visualized bony structures are within normal limits.CHEST: There is severe aortic atherosclerosis. Cardiomegaly and diffusely prominent pulmonary vascularity and interstitial markings, consistent with moderate CHF or volume overload in the appropriate clinical setting; DDx includes interstitial pneumonia in the appropriate clinical setting. Clinical correlation is advised and appropriate follow-up evaluation is recommended. The visualized bony structures are within normal limits.IMPRESSION:1. Abundant fecal material is seen within the large bowel loops; nonspecific finding; rule out constipation.2. No gross organomegaly, free intraperitoneal air, or suspicious calcifications seen.3. Cardiomegaly and diffusely prominent pulmonary vascularity and interstitial markings, consistent with moderate CHF or volume overload in the appropriate clinical setting; DDx includes interstitial pneumonia in the appropriate clinical setting. Clinical correlation is advised and appropriate follow-up evaluation is recommended.Electronically signed by: Lina Cazares (Aug 11, 2020 18:19:31)
[2020-08-11] MEDS ORDERED: FERROUS GLUCONATE PO ONE (19:47)
[2020-08-11] MEDS ORDERED: XARELTO PO ONE (19:47)
[2020-08-11] MEDS ORDERED: MEGACE PO ONE (19:47)
[2020-08-11] MEDS ORDERED: LOPRESSOR TAB 25 MG ONE (19:47)
[2020-08-11] MEDS ORDERED: COLACE CAP 100 MG PO ONE (19:47)
[2020-08-11] MEDS ORDERED: LIPITOR TAB 40 MG ONE (19:47)
[2020-08-11] MEDS ORDERED: NEURONTIN CAP 100 MG ONE (19:47)
[2020-08-11] MEDS ORDERED: MILK OF MAGNESIA ONE (19:48)
[2020-08-11] MEDS: MILK OF MAGNESIA PO SCH (20:30)
[2020-08-11] MEDS: COLACE CAP 100 MG PO SCH (20:30)
[2020-08-11] MEDS: LIPITOR TAB 40 MG PO SCH (20:32)
[2020-08-11] MEDS: NEURONTIN CAP 100 MG PO SCH (20:32)
[2020-08-11] MEDS: MEGACE PO SCH (20:32)
[2020-08-11] MEDS: FERROUS GLUCONATE PO SCH (20:33)
[2020-08-11] MEDS ORDERED: LOPRESSOR TAB 25 MG PO SCH (21:00)
[2020-08-11 22:08] LABS: HEMATOCRIT 24.7 % (36.0-47.0); HEMOGLOBIN 8.5 g/dL (12.0-16.0)
[2020-08-12 05:30] LABS: ABG BASE EXCESS -11.4 mmol/L (-2.0-2.0)
[2020-08-12 05:31] LABS: ABG ALLEN TEST POS; ABG HCO3 15.6 mmol/L (22-26)
--- NOTE | 2020-08-12 06:02 | RAD ---
HISTORYFollow-up pneumoniaSTUDYChest AP [id number]/2020FINDINGSThe heart remains enlarged. The tati are prominent and indistinct. There are increasing bilateral perihilar interstitial infiltrate now with some superimposed ground-glass infiltrates. Findings would seem most consistent with worsening cardiogenic or noncardiogenic pulmonary edema, however, bilateral pneumonia could have this appearance and clinical correlation as the presence or absence of parameters of infection recommended. No definite pleural effusions are identified. Bony thorax is unremarkable.IMPRESSIONContinued cardiomegaly with worsening bilateral interstitial and now some confluent ground-glass infiltrates most consistent with worsening congestive heart failure although bilateral pneumonia could have this appearanceElectronically signed by: UZAIR MATIAS (Aug 12, 2020 06:00:21)
[2020-08-12 06:16] LABS: BASOPHILS % (AUTO) 0.1 % (0.2-1.0); HEMATOCRIT 27.7 % (36.0-47.0); HEMOGLOBIN 9.3 g/dL (12.0-16.0); LYMPHOCYTES # (AUTO) 0.3 X10^3/uL (1.3-2.9); LYMPHOCYTES % (AUTO) 3.1 % (21.0-51.0); MEAN CORPUSCULAR HEMOGLOBIN 29.9 pg (27.0-34.0); MEAN CORPUSCULAR HGB CONC 33.5 g/dL (33.0-35.0); MEAN CORPUSCULAR VOLUME 89.3 fL (80.0-100.0); MEAN PLATELET VOLUME 9.3 fL (7.4-11.0); MONOCYTES # (AUTO) 0.5 x10^3/uL (0.3-0.8); MONOCYTES % (AUTO) 4.8 % (0.0-13.0); NEUTROPHILS # (AUTO) 9.6 x10^3/uL (2.2-4.8); PLATELET COUNT 181 X10^3/uL (150.0-450.0); RED BLOOD COUNT 3.11 X10^6/uL (3.5-5.4); RED CELL DISTRIBUTION WIDTH 14.9 % (11.6-16.5); WHITE BLOOD COUNT 10.4 X10^3/uL (3.6-10.0)
[2020-08-12 06:38] LABS: ALBUMIN 2.3 g/dL (3.4-5.0); CALCIUM 8.5 mg/dL (8.5-10.1); CARBON DIOXIDE 17.1 mmol/L (21-32); COR CA(FOR HYPOALB) 9.9 mg/dL (8.5-10.1); CREATININE 3.77 mg/dL (0.55-1.02); TOTAL PROTEIN 5.9 g/dL (6.4-8.2)
[2020-08-12 06:59] LABS: BAND NEUTROPHILS % 1 % (0-10); PLATELET MORPHOLOGY COMMENT NORMAL (NORMAL)
[2020-08-12 07:00] LABS: BURR CELLS SLIGHT
[2020-08-12] MEDS ORDERED: NS 250 ML IV 250 ML IV ONE (07:34)
[2020-08-12] MEDS ORDERED: SYNTHROID 88 mcg TAB PO SCH (09:00)
[2020-08-12] MEDS ORDERED: XARELTO PO SCH (09:00)
[2020-08-12] MEDS ORDERED: COREG TAB 12.5 MG PO SCH (09:00)
[2020-08-12] MEDS ORDERED: LEVAQUIN PREMIX IV 750 MG 750 MG/150 ML BAG IV SCH ×2 (09:00)
[2020-08-12] MEDS ORDERED: ALTACE 2.5 MG CAP PO SCH (09:00)
[2020-08-12] MEDS ORDERED: VSL#3 PO SCH (09:00)
[2020-08-12] MEDS ORDERED: PROTONIX TAB 40 MG PO SCH (09:00)
[2020-08-12] MEDS ORDERED: PEPCID TAB 20 MG PO SCH (09:00)
[2020-08-12] MEDS ORDERED: LINZESS PO ONE (09:18)
[2020-08-12] MEDS ORDERED: LASIX IVP SCH (10:00)
[2020-08-12] MEDS ORDERED: ALBUMIN HUMAN 25%- 100 ML 100 ML IV SCH (10:00)
[2020-08-12] MEDS ORDERED: AVELOX IV 400 MG/250 ML BAG 400 MG/250 ML PIGGYBACK IV SCH (10:00)
[2020-08-12] MEDS: NS 1000 ML 1,000 ML IV SCH (11:22)
[2020-08-12] MEDS: ROBITUSSIN DM PO SCH ×4 (11:24→21:03)
[2020-08-12] MEDS: MILK OF MAGNESIA PO SCH ×2 (11:25→21:03)
[2020-08-12] MEDS: NEURONTIN CAP 100 MG PO SCH ×2 (11:25→21:03)
[2020-08-12] MEDS: FERROUS GLUCONATE PO SCH ×2 (11:25→21:02)
[2020-08-12] MEDS: MEGACE PO SCH ×2 (11:25→21:03)
[2020-08-12] MEDS: COREG TAB 6.25 MG PO SCH ×2 (11:25→21:02)
[2020-08-12] MEDS: ATIVAN INJ 2 MG VIAL IVP PRN ×2 (12:25→18:45)
[2020-08-12 12:54] LABS: HEMOGLOBIN 10.3 g/dL (12.0-16.0)
[2020-08-12] MEDS: ZOSYN VIAL 3.375 GRAMS 3.375 G in NS 100 ML IV + SPIKE MINIBAG* 100 ML IV SCH ×2 (14:10→21:03)
[2020-08-12 17:01] LABS: BLOOD UREA NITROGEN 67 mg/dL (7-18); CALCIUM 8.1 mg/dL (8.5-10.1); CARBON DIOXIDE 19.6 mmol/L (21-32); CHLORIDE 108 mmol/L (98-107); CREATININE 4.11 mg/dL (0.55-1.02); SODIUM 139 mmol/L (136-145); eGFR NON BLACK RACES 11 (>60)
[2020-08-12] MEDS ORDERED: NS 500 ML IV 500 ML IV ONE (17:39)
[2020-08-12] MEDS ORDERED: NS 1000 ML 1,000 ML IV SCH (18:00)
[2020-08-12] MEDS ORDERED: KAYEXALATE SUSP RECTAL ONE (18:00)
[2020-08-12] MEDS ORDERED: MORPHINE SULFATE INJ 10 MG IVP PRN (19:49)
[2020-08-12 20:43] VITALS: BP 82/38
[2020-08-12] MEDS: COLACE CAP 100 MG PO SCH (21:02)
[2020-08-12] MEDS: LIPITOR TAB 40 MG PO SCH (21:03)
[2020-08-13] MEDS ORDERED: LEVAQUIN PREMIX IV 500 MG 500 MG/100 ML BAG IV SCH (09:00)
== END 2020-08-12 23:00 | disposition home or self-care (01) | DRG 194 ==
LOC: ER 07:39 → MED/SURG 10:47
PROVIDERS: ADMIT Obstetrics & Gynecology Obstetrics; ATTEND Obstetrics & Gynecology Obstetrics
DX: E87.2 Acidosis; Z20.828 Contact with and (suspected) exposure to other viral communicable diseases; E03.9 Hypothyroidism, unspecified; R79.1 Abnormal coagulation profile; I48.20 Chronic atrial fibrillation, unspecified; D64.9 Anemia, unspecified; N17.9 Acute kidney failure, unspecified; I50.9 Heart failure, unspecified; Z87.81 Personal history of (healed) traumatic fracture; N18.9 Chronic kidney disease, unspecified; R09.02 Hypoxemia; R26.81 Unsteadiness on feet; Z91.81 History of falling; I13.0 Hypertensive heart and chronic kidney disease with heart failure and stage 1 through stage 4 chronic kidney disease, or unspecified chronic kidney disease; J18.9 Pneumonia, unspecified organism